=== PATIENT | female | born 1965 | race Caucasian/White ===

== ENCOUNTER → 2018-03-30 | Outpatient (CLI) | payer BC ==
--- NOTE | 2018-03-30 16:13 | CT ---
EXAMINATION TYPE: CT chest wo con DATE OF EXAM: 03/30/2018 COMPARISON: Prior chest x-ray February 11, 2018 HISTORY: Abnormal finding on lung field. CT DLP: 113 mGycm. Automated Exposure Control for Dose Reduction was Utilized. TECHNIQUE: CT scan of the thorax is performed without IV contrast. FINDINGS: LUNGS: There is mild biapical parenchymal scarring and mild bibasilar linear scarring just above the diaphragms axial image 47. The lungs otherwise are grossly clear, there is no concerning parenchymal mass or nodule identified. There is no pleural effusion or pneumothorax seen currently. The trache obronchial tree is patent. Slightly elevated left hemidiaphragm is redemonstrated. MEDIASTINUM: Lack of IV contrast is noted to limit evaluation for mediastinal and especially hilar ad enopathy. There are no definitive greater than 1 cm hilar or mediastinal lymph nodes. No cardiomega ly or pericardial effusion is seen. Coronary artery calcification is seen which is noted marker for c oronary artery disease. Ascending aorta measures up to 3.7 cm in diameter axial image 26. OTHER: There is metallic plate from prior surgery left clavicle level. Cholecystectomy clips are rede monstrated. Curvilinear calcification lateral aspect of spleen axial image 52 is presumed benign. IMPRESSION: No significant pleural effusion or pleural thickening currently. Mild parenchymal scarrin g without suspicious acute pulmonary process. Ectasia of ascending thoracic aorta up to 3.7 cm noted.
== END | disposition home or self-care (01) ==
LOC: RADCTMAIN 14:56 → MERGE 15:00
PROVIDERS: ATTEND Family Medicine
DX: J98.4 Other disorders of lung (principal); I77.810 Thoracic aortic ectasia
CPT/HCPCS: 71250

== ENCOUNTER → 2018-11-03 | Outpatient (CLI) | payer OTHER ==
--- NOTE | 2018-11-03 14:01 | XR ---
EXAMINATION TYPE: XR hand complete RT DATE OF EXAM: 11/03/2018 CLINICAL HISTORY: Injury with pain and swelling TECHNIQUE: Frontal, lateral and oblique images of the right hand are obtained. COMPARISON: None. FINDINGS: There is no acute fracture/dislocation evident in the right hand. The joint spaces in the right hand appear within normal limits. Mild soft tissue swelling centered PIP joints throughout the phalanges is noted. IMPRESSION: There is no acute fracture or dislocation in the right hand.
== END | disposition home or self-care (01) ==
LOC: RADXRMAIN 13:46
PROVIDERS: ATTEND Emergency Medicine
DX: S63.8X1A Sprain of other part of right wrist and hand, initial encounter (principal)

== ENCOUNTER → 2019-03-08 | Outpatient (CLI) | payer BC ==
--- NOTE | 2019-03-08 13:51 | MR ---
EXAMINATION TYPE: MR lumbar spine wo con DATE OF EXAM: 03/08/2019 COMPARISON: Lumbosacral spine x-rays dated 09/15/2017 HISTORY: Low Back Pain, sciatica TECHNIQUE: Multiplanar, multisequence images of the lumbar spine were acquired. FINDINGS: Lumbar spine vertebral bodies maintain normal vertebral body height and alignment. Axial im aging is slightly limited by patient motion. L1-L2: Disc desiccation without focal herniation or spinal canal stenosis. Foramina are patent. L2-L3: Broad-based disc bulge is seen with facet arthropathy resulting in very minimal bilateral neur al foraminal narrowing. Left foraminal annular tear is also seen. No spinal canal stenosis. L3-L4: Left lateral annular tear is seen with additional right foraminal annular tear. Broad-based di sc bulge and facet arthropathy results in mild bilateral neural foraminal narrowing without spinal ca nal stenosis. L4-L5: Broad-based disc bulge and facet arthropathy are seen. Left lateral annular tear is present. T here is mild bilateral neural foraminal narrowing without spinal canal stenosis or focal disc herniat ion. L5-S1: There is a central disc extrusion in a subligamentous and 7 mm caudally. There is mild spinal canal stenosis as a result of ligamentum flavum buckling, facet arthropathy and the disc herniation. IMPRESSION: 1. Central disc herniation with 7 mm caudal subligamentous disc extrusion at L5-S1 crating mild spina l canal stenosis. 2. Overall mild degenerative disc disease of the lumbar spine at the remaining lumbar levels as detai led above with multiple annular tears.
== END | disposition home or self-care (01) ==
LOC: RADMRIMAIN 11:01
PROVIDERS: ATTEND Physician Assistant Medical
DX: M51.16 Intervertebral disc disorders with radiculopathy, lumbar region (principal)
CPT/HCPCS: 72148

== ENCOUNTER 2020-03-24 11:56 | Day surgery (SDC) | payer BC ==
[2020-03-20 16:03] VITALS: BMI 19.3
[~2020-03-24 11:56] MED LIST: LACTATED RINGERS 1,000 ML IV SCH
[2020-03-24 12:14] VITALS: TEMP 97.9
[2020-03-24] MEDS ORDERED: LIDOCAINE 1% (10MG/ML) FOR IV START INTRADERMA ONE (12:29)
[2020-03-24] MEDS ORDERED: IOPAMIDOL M200 10 ML VIAL ONE (13:27)
[2020-03-24] MEDS ORDERED: fentaNYL (PF) 50 MCG/ML 2 ML AMP ONE (13:27)
[2020-03-24] MEDS ORDERED: MIDAZOLAM 2 MG/2 ML VIAL ONE (13:27)
[2020-03-24] MEDS ORDERED: methylPREDNISolone ACETATE 40 MG/ML 1 ML VIAL ONE (13:27)
--- NOTE | 2020-03-24 13:42 | P.PCN ---
Date of Procedure: 03/24/20 Procedure(s) Performed: PREOPERATIVE DIAGNOSIS: 1-Lumbar radiculopathy .2-lumbar herniated disc disease. 3-lumbar spinal stenosis. 4-lumbar spondylosis with facet arthropathy POSTOPERATIVE DIAGNOSIS: Same as preoperative diagnoses. PROCEDURE 1. Transforaminal epidural steroid injection under fluoroscopic guidance at right L5-S1 level. (Fluoroscopy images stored on file in the radiology Department ) 2. Lumbar epidurogram . ANESTHESIA: moderate sedation with intravenous Versed 1mg and fentanyle 50 micrograms. EBL: Minimal PROCEDURE INDICATION: The patient with low back pain and radiculopathy symptoms unresponsive to conservative treatment. PROCEDURE DESCRIPTION / TECHNIQUE: The patient was seen and identified in the preoperative area. Risks, benefits, complications, and alternatives were discussed with the patient. The patient ag shayy to proceed with the procedure and signed the consent. IV was started, and vital signs were stable. Patient was taken to the OR and time out was completed. The patient was placed in the prone position on procedure table and a pillow was placed under the abdomen to reduce lumbar lordosis. The lumbosacral area was prepped and draped in the usual sterile fashion. Critical pause was taken. Vital signs were closely monitored during the procedure. Conscious sedation was used during the procedure to decrease patient s anxiety. Using oblique fluoroscopy, the chin of the ``Darnell dog at right L5-S1 level was identified, and the skin and deeper tissues just below was localized with 1% lidocaine. Subsequently, a 22-gauge 3.5-inch spinal needle was advanced under a tunneled view fluoroscopic guidance just underneath the chin of the ``Darnell dog at the right L5-S1 Under lateral fluoroscopy, the needle was then advanced to the posterior border of the interforaminal space. After negative aspiration of CSF and blood and with no paresthesias, 1 mL Isovue 200 contrast dye was injected excellent epidurogram and outlining of the nerve root Subsequently, 3 mL of block solution containing 80 mg Depo-Medrol and 2 mL of 0.9% normal saline PF was injected. Needle was removed . At the end of the procedure, skin was cleansed, and bandages were applied. COMPLICATIONS:none DISPOSITION / PLANS: The patient was placed in a supine position and transferred to the recovery area in a stable condition for observation. There was no evidence of lower extremity motor or sensory deficit after the procedure. Patient was discharged from the recovery room after meeting discharge criteria. Home discharge instructions were given to the patient by the staff. The patient was reexamined prior to discharge.
[2020-03-24 13:46] VITALS: PULSE 89; RESP 17
--- NOTE | 2020-03-24 13:52 | FL ---
EXAMINATION TYPE: FL guided pain mgmt statistic DATE OF EXAM: 03/24/2020 CLINICAL HISTORY: Low back pain. TECHNIQUE: Fluoroscopy. COMPARISON: None. FINDINGS: Fluoroscopic guidance was provided during pain relief procedure performed by Dr. Jerez . A total of 5 seconds of fluoroscopic time was utilized during the procedure and 1 spot images are acquired. Single image acquired shows needle localization at right L5 level. IMPRESSION: As Above.
[2020-03-24 13:55] VITALS: BP 161/79
== END 2020-03-24 14:11 | disposition home or self-care (01) ==
LOC: ORPAIN 11:56
PROVIDERS: ATTEND Specialist
DX: M51.16 Intervertebral disc disorders with radiculopathy, lumbar region (principal); M48.061 Spinal stenosis, lumbar region without neurogenic claudication; M47.26 Other spondylosis with radiculopathy, lumbar region
CPT/HCPCS: 64483; J2250; J1030; J3010; Q9966

== ENCOUNTER 2020-04-21 06:31 | Day surgery (SDC) | payer BC ==
[2020-04-20 09:13] VITALS: BMI 18.7
[2020-04-21 06:54] VITALS: RESP 16; TEMP 97.8
[2020-04-21] MEDS ORDERED: LIDOCAINE 1% (10MG/ML) FOR IV START INTRADERMA ONE (07:02)
[2020-04-21] MEDS ORDERED: fentaNYL (PF) 50 MCG/ML 2 ML AMP ONE (07:33)
[2020-04-21] MEDS ORDERED: IOPAMIDOL M200 10 ML VIAL ONE (07:33)
[2020-04-21] MEDS ORDERED: DEXAMETHASONE SOD PHOSPHATE 10 MG/ML 1 ML VIAL ONE (07:33)
[2020-04-21] MEDS ORDERED: MIDAZOLAM 2 MG/2 ML VIAL ONE (07:33)
[2020-04-21] MEDS ORDERED: LIDOCAINE 1% INJ 10MG/ML (20 ML MDV) ONE (07:33)
--- NOTE | 2020-04-21 07:44 | P.PCN ---
Date of Procedure: 04/21/20 Surgeon: Nitesh Flanagan Pathology: none sent Condition: stable Disposition: PACU Description of Procedure: Date of the procedure: PREOPERATIVE DIAGNOSIS: Lumbar radiculopathy POSTOPERATIVE DIAGNOSIS: Lumbar radiculopathy PROCEDURE 1. Transforaminal epidural steroid injection under fluoroscopic guidance at right L5-S1 2. Lumbar epidurogram. SURGEON: Nitesh Flanagan MD [employer] PERSON: ANESTHESIA: Local with 1% lidocaine; IV sedation with Versed and fentanyl. EBL: Minimal PROCEDURE INDICATION: The patient with low back pain and radiculopathy symptoms unresponsive to conservative treatment. PROCEDURE DESCRIPTION / TECHNIQUE: The patient was seen and identified in the preoperative area. Risks, benefits, complications, and alternatives were discussed with the patient. The patient agreed to proceed with the procedure and signed the consent. IV was started, and vital signs were stable. Patient was taken to the OR and time out was completed. The patient was placed in the prone position on procedure table and a pillow was placed under the abdomen to reduce lumbar lordosis. The lumbosacral area was prepped and draped in the usual sterile fashion. Critical pause was taken. Vital signs were closely monitored during the procedure. Conscious sedation was used during the procedure to decrease patients anxiety. The vertebral body of the lumbar vertebra L5 was squared off by tilting the C-arm cephalad then the C-arm was tilted to the oblique position and the target point was at the 6 o'clock position of the pedicle of then skin and deeper tissues were localized with 1% lidocaine. Subsequently, a 22-gauge 3.5- inch spinal needle was advanced under a tunneled view fluoroscopic guidance just underneath the chin of the Darnell dog at the . Under lateral fluoroscopy, the needle was then advanced to the middle of the upper one third of the foramen between( L5 and S1). After negative aspiration of CSF and blood and with no paresthesias, 1 mL of omnipaque contrast dye was injected excellent epidurogram and outlining of the L nerve root was identified. Subsequently, 2 mL of block solution containing 10 mg of Decadron and 1 mL of Lidocaine 1% PF was injected. Needle was removed and the same . At the end of the procedure, skin was cleansed, and bandages were applied. COMPLICATIONS: None COMMENTS: DISPOSITION / PLANS: The patient was placed in a supine position and transferred to the recovery area in a stable condition for observation. There was no evidence of lower extremity motor or sensory deficit after the procedure. Patient was discharged from the recovery room after meeting discharge criteria. Home discharge instructions were given to the patient by the staff.
[2020-04-21] MEDS ORDERED: IV FLUID CONTINUATION 1,000 ML IV ONE (07:48)
[2020-04-21 08:05] VITALS: BP 166/89; PULSE 94
--- NOTE | 2020-04-21 08:11 | FL ---
Fluoroscopy History: Rt Transforaminal Inj 7sec fluoro time, 3 images scanned
== END 2020-04-21 08:19 | disposition home or self-care (01) ==
LOC: ORPAIN 06:31
PROVIDERS: ATTEND Anesthesiology
DX: M54.16 Radiculopathy, lumbar region (principal); F17.210 Nicotine dependence, cigarettes, uncomplicated
CPT/HCPCS: 64483; J2250; J1100; J2001; J3010; Q9966

== ENCOUNTER 2020-06-13 08:53 | Day surgery (SDC) | payer BC ==
[2020-06-09 11:44] VITALS: BMI 18.3
[2020-06-13 09:09] VITALS: RESP 16; TEMP 96.9
[2020-06-13] MEDS ORDERED: LACTATED RINGERS 1,000 ML IV ONE (09:15)
[2020-06-13] MEDS ORDERED: LIDOCAINE 1% (10MG/ML) FOR IV START INTRADERMA ONE (09:15)
[2020-06-13] MEDS ORDERED: DEXAMETHASONE SOD PHOSPHATE 10 MG/ML 1 ML VIAL ONE (09:20)
[2020-06-13] MEDS ORDERED: MIDAZOLAM 2 MG/2 ML VIAL ONE (09:20)
[2020-06-13] MEDS ORDERED: fentaNYL (PF) 50 MCG/ML 2 ML AMP ONE (09:20)
[2020-06-13] MEDS ORDERED: IOPAMIDOL M200 10 ML VIAL ONE (09:20)
--- NOTE | 2020-06-13 09:39 | P.PCN ---
Date of Procedure: 06/13/20 Description of Procedure: PREOPERATIVE DIAGNOSIS: Lumbar radiculopathy POSTOPERATIVE DIAGNOSIS: Lumbar radiculopathy PROCEDURE 1. Transforaminal epidural steroid injection under fluoroscopic guidance at right L5-S1 8 minutes. 2. Lumbar epidurogram. SURGEON: Jose Silva MD NEW BUSINESS CLERK: ANESTHESIA: Local with 1% lidocaine; IV sedation with Versed and fentanyl. EBL: Minimal PROCEDURE INDICATION: The patient with low back pain and radiculopathy symptoms unresponsive to conservative treatment. PROCEDURE DESCRIPTION / TECHNIQUE: The patient was seen and identified in the preoperative area. Risks, benefits, complications, and alternatives were discussed with the patient. The patient agreed to proceed with the procedure and signed the consent. IV was started, and vital signs were stable. Patient was taken to the OR and time out was completed. The patient was placed in the prone position on procedure table and a pillow was placed under the abdomen to reduce lumbar lordosis. The lumbosacral area was prepped and draped in the usual sterile fashion. Critical pause was taken. Vital signs were closely monitored during the procedure. Conscious sedation was used during the procedure to decrease patients anxiety. The vertebral body of the lumbar vertebra L5 was squared off by tilting the C-arm cephalad then the C-arm was tilted to the oblique position and the target point was at the 6 o'clock position of the pedicle of then skin and deeper tissues were localized with 1% lidocaine. Subsequently, a 22-gauge 3.5- inch spinal needle was advanced under a tunneled view fluoroscopic guidance just underneath the chin of the Darnell dog at the . Under lateral fluoroscopy, the needle was then advanced to the middle of the upper one third of the foramen between( L5 and S1). After negative aspiration of CSF and blood and with no paresthesias, 1 mL of omnipaque contrast dye was injected excellent epidurogram and outlining of the L nerve root was identified. Subsequently, 2 mL of block solution containing 10 mg of Decadron and 1 mL of Lidocaine 1% PF was injected. Needle was removed and the same . At the end of the procedure, skin was cleansed, and bandages were applied. COMPLICATIONS: None COMMENTS: DISPOSITION / PLANS: The patient was placed in a supine position and transferred to the recovery area in a stable condition for observation. There was no evidence of lower extremity motor or sensory deficit after the procedure. Patient was discharged from the recovery room after meeting discharge criteria. Home discharge instructions were given to the patient by the staff. Patient will follow up in clinic in 2-4 weeks.
[2020-06-13] MEDS ORDERED: IV FLUID CONTINUATION 1,000 ML IV ONE (09:44)
[2020-06-13 10:05] VITALS: BP 159/83; PULSE 97
--- NOTE | 2020-06-13 12:28 | FL ---
Fluoroscopy INDICATION: Pain FINDINGS: Fluoroscopy time: 4 seconds. Images obtained: 1. IMPRESSIONS: 1. Documentation of fluoroscopy.
== END 2020-06-13 10:11 | disposition home or self-care (01) ==
LOC: ORPAIN 08:53
PROVIDERS: ATTEND Anesthesiology
DX: M54.16 Radiculopathy, lumbar region (principal); Z79.899 Other long term (current) drug therapy
CPT/HCPCS: 64483; J2250; J1100; J3010; Q9966

== ENCOUNTER → 2020-07-10 | Outpatient (CLI) | payer BC ==
[2020-07-10 11:59] VITALS: BP 145/88; PULSE 89; RESP 16; TEMP 97.6
--- NOTE | 2020-07-10 12:12 | P.PN ---
Subjective Progress Note Date: 07/10/20 This is a follow-up visit for this 54 years old female with a chronic history of severe low back pain with radiation to the right lower extremity, the statements with lumbar radiculopathy and lumbar herniated disease at L5-S1, and lumbar spondylosis with lumbar facet arthropathy, status post right-sided tr ansforaminal epidural steroid injection at L5-S1 3, she got short-term benefit after the injections, and she is complaining of severe low back pain with radiation to the right lower extremity associated with numbness and tingling sensation, she feels some weakness in her right lower extremity, intensity of the pain increases with any activity Objective - Vital Signs Vital signs: Vital Signs Temp 97.6 F 07/10/20 11:53 Pulse 89 07/10/20 11:53 Resp 16 07/10/20 11:53 BP 145/88 07/10/20 11:53 Pulse Ox 98 07/10/20 11:53 - Exam Physical Examinations : -Constitutiona : Cooperative , not in acute distress . -HEENT : nech : supple , no Lymphadenopathy , normal thyroid size . : eyes : no ptosis , no icterus, no photophobia . - neurologic : Cranial nerve II to XII intact , no focal neurological deffecit . -psychatric : alert , oriented X 3 , appropriate affect , intact judgment and insight . -Lymphatic : no Lymphadenopathy . - musculoskeltal : Lumber spine moter stegnth lower extremities ,thigh and legs 3-4/5 Right side , 5/5 Left side deep tendon reflexes : normal Knee Jerk , normal ankle Jerk lumber facet Loading Test =positive Right , positive Left Range of motion of the lumbar spine Flexion 30 degrees, extension 10 degrees strait leg raising test = positive at 30 degree right side Fabere test= positive Right , and positive LT . tenderness over the Sacroiliac joint on the Right , and Left sides MRI of the lumbar spine = lumbar herniated disc disease at L5-S1 and lumbar degenerative disc disease and lumbar facet arthropathy Assessment and Plan Plan: Assessment and plan=1-lumbar radiculopathy. 2-lumbar herniated disc disease. 3-lumbar spondylosis with lumbar facet arthropathy. she continue to have severe low back pain with radiation to the right lower extremity after transforaminal epidural steroid injections 3 , patient will follow up with for evaluation of possible surgical interventions. - PQRS measures = - Patient's medications are documented in the chart. -Tobacco use is positive, and counseling.Given. -Patient's has not received pneumococcal vaccine. -Advanced care planning discussed, patient not eligible. -Opiate contract not signed. -Pain positive and follow-up visit/procedure is scheduled. -Patient's blood pressure measured [145/88 ] , and documented in the record ,and patient will follow up with the primary care. -Patient's weight was measured and body mass index [ 18.7 ] below the normal limits and counseling was done. and patient instructed to follow-up with the primary care physician. -Patient was not identified as an unhealthy alcohol user Time with Patient: Less than 30
== END ==
LOC: PNWHC3 10:48
PROVIDERS: ATTEND Specialist
DX: M47.26 Other spondylosis with radiculopathy, lumbar region (principal); M51.26 Other intervertebral disc displacement, lumbar region
CPT/HCPCS: 99211

== ENCOUNTER → 2020-07-17 | Outpatient (CLI) | payer BC ==
--- NOTE | 2020-07-18 07:56 | MR ---
EXAMINATION TYPE: MR lumbar spine wo con DATE OF EXAM: 07/17/2020 COMPARISON: 03/08/2019 HISTORY: Low back pain into rt lower extremity TECHNIQUE: T1 and T2 axial and sagittal images of the lumbar spine are submitted. FINDINGS: There is no abnormal signal seen within the visualized spinal cord or paraspinal soft tissu es. At L1-2 there is no disc herniation or canal stenosis. No foraminal encroachment. At L2-3 there is mild broad-based disc bulging but no canal stenosis or focal herniation. Hypertrophy of the facets. Mild degenerative disc disease. Neural foramina patent At L3-4 there is degenerative disc disease with anterior hypertrophic spurring. Mild circumferential disc bulging with mild effacement of thecal sac. There is facet arthropathy and ligamentum flavum hyp ertrophy with borderline to mild central stenosis and mild bilateral foraminal encroachment At L4-5 there is degenerative disc disease with broad-based disc bulging with a greater right paracen tral and lateral disc broad-based herniation. Advanced facet arthropathy and ligamentum flavum hypert rophy contribute to severe right and moderate left foraminal encroachment and severe canal stenosis. At L5-S1 there is degenerative disc disease with broad-based central disc small herniation there is m ild effacement of thecal sac. Disc material appears to extrude portions of signal seen posterior to t he upper margin of S1 segment. Facet arthropathy noted. Neural foramina demonstrate no significant na rrowing. IMPRESSION: 1. Broad-based disc herniation greater paracentrally to the right L4-L5. Advanced facet arthropathy a nd ligamentum flavum hypertrophy contribute to significant bilateral foraminal encroachment and sever e canal stenosis. On axial image 9 portions of the disc herniation extends laterally into the right n eural foramina. Suspected nerve root impingement. 2. A broad-based central disc herniation L5-S1 with mild effacement of thecal sac. Similar in appeara nce to the prior exam. 3. Multilevel degenerative disc disease as discussed above.
== END | disposition home or self-care (01) ==
LOC: RADMRIMAIN 11:37
PROVIDERS: ATTEND Physician Assistant Medical
DX: M48.061 Spinal stenosis, lumbar region without neurogenic claudication (principal); M51.26 Other intervertebral disc displacement, lumbar region
CPT/HCPCS: 72148

== ENCOUNTER → 2020-07-31 | Outpatient (CLI) | payer BC ==
--- NOTE | 2020-07-31 11:37 | XR ---
EXAMINATION TYPE: XR chest 2V DATE OF EXAM: 07/31/2020 COMPARISON: 02/11/2018 HISTORY: Preoperative, smoker TECHNIQUE: Frontal and lateral views of the chest are obtained. FINDINGS: Heart size is within normal limits. Atherosclerotic aortic knob. No focal consolidation, p neumothorax or pleural effusion. There is hyperaeration of the lungs with increased retrosternal airs pace suggestive of COPD. There is a plate and screw fixation device at the left clavicle. IMPRESSION: 1. No acute pulmonary disease. 2. COPD.
== END | disposition home or self-care (01) ==
LOC: RADXRYALE 10:42
PROVIDERS: ATTEND Physician Assistant Medical
DX: Z01.818 Encounter for other preprocedural examination (principal); J44.9 Chronic obstructive pulmonary disease, unspecified; F17.200 Nicotine dependence, unspecified, uncomplicated
CPT/HCPCS: 71046

== ENCOUNTER → 2020-07-31 | Outpatient (CLI) | payer BC | END | disposition home or self-care (01) | LOC: LABPAT 13:42 | PROVIDERS: ATTEND Orthopaedic Surgery | DX: Z01.812 Encounter for preprocedural laboratory examination (principal) | CPT/HCPCS: 36415; 86850; 86900; 86901; 87070 ==

== ENCOUNTER 2020-08-08 06:09 | Day surgery (SDC) | payer BC ==
[2020-08-02 13:58] VITALS: BMI 17.7
[~2020-08-08 06:09] MED LIST changes: +ACETAMINOPHEN TAB 500 MG TAB PO PRN; +DEXAMETHASONE SOD PHOSPHATE 4 MG/ML 1 ML VIAL IV ONE; +GABAPENTIN 300 MG CAP PO PRN; -LACTATED RINGERS 1,000 ML IV SCH; +LIDOCAINE 1% (10MG/ML) FOR IV START INTRADERMA PRN; +MIDAZOLAM 2 MG/2 ML VIAL IV PRN; +ONDANSETRON 4 MG/2 ML VIAL IVP ONE; +ONDANSETRON 4 MG/2 ML VIAL IVP PRN; +TRANEXAMIC ACID 1,000 MG in SODIUM CHLORIDE 0.9% 100 ML IVPB PRN
--- NOTE | 2020-08-08 06:35 | P.HPOR ---
History of Present Illness H&P Date: 07/26/20 Chief Complaint: LE weakness, Radiculopathy, neurogenic claudication Physical Therapy: Yes How many sessions? 16 Did it help? No Injections: No Activity Modifications: No Brace: No CC: I have low back pain and leg pain Subjective: This 54 year old female presents with low back pain. Patient denies any specific injury. She states that she has had low back pain for 2 years. She had previous physical therapy with no relief. She reports low back pain that radiates down her right leg to her foot. She notes pain with bending and with prolonged walking. She denies any bowel or bladder problems. Patient was seen by her primary care physician and then referred to our office for an evaluation. Patient is taking Tylenol or Aleve as needed for pain. Review of Systems 14 points review of systems completed and as stated in HPI, all other systems reviewed are negative. Past Medical History Past Medical History: Hyperlipidemia, Hypertension, Osteoarthritis (OA) Additional Past Medical History / Comment(s): Hx fx Lt Clavicle. Lower back pain- radiates into Rt leg, numbness/tingling rt leg, herniated disk, History of Any Multi-Drug Resistant Organisms: None Reported Past Surgical History: Cholecystectomy, Orthopedic Surgery Additional Past Surgical History / Comment(s): ORIF left clavicle-has plate/screws. pain clinic procedures Past Anesthesia/Blood Transfusion Reactions: No Reported Reaction Smoking Status: Current every day smoker - Past Family History Mother Family Medical History: Cancer Additional Family Medical History / Comment(s): BREAST Father Family Medical History: Cancer Additional Family Medical History / Comment(s): skin cancer Medications and Allergies Home Medications Medication Instructions Recorded Confirmed Type Multivitamins, Thera [Multivitamin 1 tab PO DAILY 03/20/20 08/02/20 History (formulary)] Cyclobenzaprine [Flexeril] 5 mg PO TID 06/09/20 08/08/20 History Ibuprofen 800 mg PO TID 07/06/20 08/02/20 History atenoloL [Atenolol] 25 mg PO QAM 07/06/20 08/02/20 History Celecoxib [CeleBREX] 200 mg PO QAM 07/10/20 08/02/20 History Acetaminophen [Tylenol Extra 1,000 mg PO DIRECTED PRN 08/02/20 08/02/20 History Strength] Atorvastatin [Lipitor] 40 mg PO HS 08/02/20 08/08/20 History Allergies Allergy/AdvReac Type Severity Reaction Status Date / Time No Known Allergies Allergy Verified 08/08/20 06:25 Physical Examination Osteopathic Statement: *. No significant issues noted on an osteopathic structural exam other than those noted in the History and Physical/Consult. General: Awake, alert, appropriate for age, in no acute distress. HEENT: No unusual neck masses around region of lateral neck triangle, thyroid, supraclavicular groove Heart: Regular rate and rhythm, normal S1, S2 and no murmur/gallop. Lungs: Clear to auscultation bilaterally with no use of accessory muscles. Extremities: Skin warm and dry without acute lesions, coloration, temperature, skin intact, no tenderness or erythema Integument: Hairy patches: Absent Dorsal skin dimples: Absent Cafe au lait spots: Absent Surgical incisions: None Palpation: Please see Pain drawing on Intake sheet for further detail. Midline spinal tenderness: yes lumbar E6 Paralumbar tenderness: No E6 Parathoracic tenderness: No E6 Buttocks tenderness: No E6 Special findings: none POSTURAL and MUSCULO-SKELETAL EVALUATION: Coronal Balance: Neutral Recumbent testing: Patient is able to lay flat on back Sagittal Balance: Neutral Shoulder Profile: level Pelvic Girdle: level Neck ROM: Unrestricted Lumbar ROM: Unrestricted Shoulder ROM: Symmetric in abduction, ER/IR Hip ROM: Symmetric in abduction, adduction, ER/IR Knee ROM: Symmetric and intact in Flexion / extension Hands: Normal Feet: Normal VASCULAR STATUS : LEFT RIGHT Wrist Pulses intact intact Pedal Pulses (Dors. pedis & post.tibialis) intact intact Color normal normal Edema Absent Absent NEUROLOGIC EXAMINATION: Mental Status: Awake and alert, fully oriented, with normal attention, concentration and memory, and fluent, appropriate speech. Cranial Nerves: I: Olfactory not tested. II: Visual acuity normal, no visual field deficit noted with confrontation. III,IV: Normal pupillary reflexes & intact extraocular movements without nystagmus. V,: Intact symmetrical facial sensation. VII: Intact symmetrical facial motor movement VIII: Hearing intact. IX,X: Intact gag, swallow, & normal voice. XI: Sternocleidomastoid, trapezius function intact. XII: Tongue midline with normal movements. L'hermitte's Sign: Negative / absent Spurling'Sign: Absent bilaterally. Cubital percussion test: Absent bilaterally. Joe-Tinel sign - Carpal region: Absent bilaterally. Straight Leg Raising: Absent bilaterally. Crossed straight leg raise: negative O8 MOTOR EXAM (0-5/5, N/T) STRENGTH RIGHT LEFT Shoulder Abd (not part of the AMBER score) 5 5 Elbow Flexors 5 5 Elbow Extensor 5 5 Wrist Dorsiflexors 5 5 Finger Abductor 5 5 Media Relations Coordinator 5 5 Hip Flexor (Not part of AMBER Motor score) 5 5 Knee Flexor 5 5 Knee Extensor 5 5 Ankle dorsiflexor 5 5 Ankle plantarflexion 4 5 Extensor hallucis 5 5 REFLEXES(0-4/2, NT) RIGHT LEFT Upper Extremities 2 2 Lower Extremities 2 2 Pathological Reflexes RI GHT LEFT Patino's Absent Absent Clonus Absent Absent Neg babinski b/l Muscle appearance: Normal Rectal Tone: Not tested Sensory system (0-4, N/T) Test type RU ELVER RL LL Joint-Position 2 2 2 2 Vibration 2 2 2 2 Pain & LT sense 2 2 2 2 Dermatomal Deficit: none none none none Gait and Functional Evaluation: Ambulatory aids: Independent Romberg's test: Intact bilaterally Toe heel walk / heel-toe walk intact while maintaining satisfactory balance? yes Squatting/straightening w/o assistance to a min of 60 degree knee flexion? yes Single leg stance: intact Trendelenburg sign negative bilaterally Hand and finger dexterity intact bilaterally? No Disdiadochokinesis examination negative bilaterally? No Results LUMBAR SPINE X-RAYS 02/14/2020: ap LATERAL FLEXION EXTENSION FILMS OF THE LUMBAR SPINE ARE OBTAINED AND REVIEWED IN THE OFFICE TODAY WELL ap PELVIS. tHIS DEMONSTRATES AN OVERALL WELL-MAINTAINED ALIGNMENT IN THE SAGITTAL WELL CORONAL PLANE. tHE SPINE REMAINED STABLE THROUGH FLEXION-EXTENSION THERE ARE NO FRACTURES DISLOCATIONS OR LESIONS NOTED. tHERE IS MILD FACET ARTHROSIS AT l5-s1 WITH MILD SPONDYLOSIS AT l5-s1. MRI of the lumbar spine from 07/17/2020 reveal: Severe stenosis L4-5 due to facet hypertrophy and ligamentum hypertrophy. Large far lateral disc herniation L4-5 on the R. No fracture or dislocation. No lesions noted. Overall alignment appears within reasonable limits. Assessment and Plan Assessment: 1. L4-L5 disc herniation with severe stenosis 2. RLE weakness with radiculopathy Plan: In our visit today Ms. Smith and I have had a chance to go over my understanding of the patient's current condition, the natural course history without intervention and various interventional options. Questions were invited and answered, and the patient wishes to proceed as outlined above. She has failed all conservative therapies including shots, OTC medications, PT and physician directd home exercises. She is having progressive weakness and pain in her RLE secondary to this issue. We discussed surgery at length vs continued conservative measures but if she does not have this taken care of she runs the risk of continued or worsening weakenss. She understands and wants surgery at this time. Surgical Procedure Risk Review Toshia Smith is a 54 year old female presenting for evaluation of sudden onset of RLE weakness, pain and low back pain. It was my pleasure to have seen and examined Ms. Smith. In our visit today we have had a chance to go over subjective complaints, physical examination findings and treatments, including the natural course history without intervention and various interventional options. The imaging demonstrates L4-5 severe stenosis and far lateral HNP . On physical exam, Ms. Smith demonstrates weakness in her RLE, severe pain, tensioning signs, radiculopathy and inability to perform ADLs as well as work secondary to this issue . I explained to the patient that as her condition progresses it could cause progressive weakness, continued pain and debility . At this time, based on the patients imaging and physical exam, I recommend surgery in the form or a: L4-5 laminectomy, discectomy and Coflex placement . I discussed the risk and benefits of this procedure at length with Ms. Smith. The patient agreed to consider pursuing the procedure mentioned above. Plan: 1. L4-5 bilateral laminectomy, microdiscectomy and coflex placement 2. Follow up with PCP for surgical clearance 3. Review of surgical risks and benefits as well as an educational packet on the proposed surgical procedure. Risks: All surgical procedures come with inherent risks, including those related to positioning, anesthesia, intraoperative findings, and postoperative complications. It is important to understand that surgery does not come with any guarantee of a successful outcome as complications and adverse events are always possible. The patient was given a handout in office today discussing the surgical procedure and risks associated with the intervention, both of which were discussed with the patient. These risks include but are not limited to the following: ? Experiencing same, different or even worse symptoms in back, neck, arms, or legs compared to before surgery. ? Requiring further surgery or other forms of treatment presently or at some time in the future at same or other levels of the intended spine surgery. ? On an extreme but fortunately relatively rare basis severe complication such as blindness, stroke, heart attack, temporary and/or permanent nerve injury, paralysis, coma, or may occur, sometimes without known explanation. ? Surgical complications may include but are not limited to risk of infection, fluid accumulation in the surgical dissection site, including a seroma or hematoma, that requires additional surgery, wound drainage, bleeding, new numbness or weakness, vision changes/loss, spinal fluid leakage, non-healing and/or infected incision, headaches, difficulty or inability to swallow, hoarseness, hemopneumothorax, pneumothorax, impotence, retrograde ejaculation, vaginal dryness; injury to nerves, spinal cord, blood vessels, lymphatics or other vital organs (i.e., bowel injury, injury to the great vessels); heterotopic bone formation; complications related to the hardware such as screws, rods, cages including misplaced hardware, device failure, instrumentation at the wrong spine level, hardware fracture/breakage, or hardware loosening; vertebral failure of the spinal column above or below the newly placed hardware; retained surgical instrumentations or devices and the need for further surgery. ? Medical risks of the planned spine surgery include but are not limited to generalized Infections to the whole body or local areas outside of the surgical site (sepsis), heart attack, bleeding, anaphylaxis, meningitis, seizure, epilepsy, hearing loss, burn corbin, laceration of the head or other areas of the body, bruising, hypersensitivity of the skin, bladder over distension; allergic reaction; shoulder injury related to positioning; fat, blood and air clots to other areas of the body like heart, lungs, brain; failure of internal organs such as lungs, kidneys, liver and excessive bleeding. If blood transfusions are necessary, note that transfusions may cause intolerance reactions such as anaphylaxis or other complex reactions. Despite best efforts, the results of spine surgery might not heal in terms of bone, soft tissues such as skin, fascia, ligaments, and joints. Additionally, in order to achieve best possible results, spine surgery may be carried out beyond the initially planned levels and involve decompression, fusion including insertion of hardware at levels other than the original intended area of surgical interest change some portions of the procedure in order to ensure the best possible outcomes. With spine surgery and spinal fusion, there are different off label uses of instrumentation (devices, implants and hardware) as well as biological substances (bone morphogenic proteins, demineralized bone matrix) as well as using extra bone from allograft sources (i.e. cadaver bone) or autograft (iliac crest bone, ribs, or the spine itself). The patient has been given information about these practices and their inherent risks and benefits. Wendie Rowland Physician Assistants are medically trained surgical providers who function in the outpatient, inpatient, and operating room setting under the direct supervision of the attending surgeon.They assist in the operating room with direct supervision of the attending surgeons. The patient has had a chance to review all the listed information, has been given print outs detailing this information, and has had all his/her questions answered to their satisfaction. It was my pleasure to have seen and examined Ms. Smith. In our visit today we have had a chance to go over my understanding of our patient's current condition, the natural course history without intervention and various interventional options. Questions were invited and answered, and the patient wishes to proceed as outlined above. I have seen and examined the patient for 25 minutes and we have spent more than 50% of the time in repeat and detailed counseling about the patient's condition, its natural course history with out and as much as can be predicted with surgery and re-review of various surgical treatment options. In conclusion,Ms. Smith and her spouse/partner requested we proceed with the above suggested surgery and are willing to accept risks and limitations of the suggested surgery as nature of the disease process and our best attempts at treatment for the condition. Thank you again for allowing us to be part of your patient's care. Please don't hesitate to contact me if you have any further questions. Signed and authenticated by: Jairo Coyne [facility] [address] [address] This message is confidential, intended only for the named recipient(s) and may contain information that is privileged or exempt from disclosure under applicable law. If you are not the intended recipient(s), you are notified that the dissemination, distribution or copying of this information is strictly prohibited. If you received this message in error, please notify the sender then delete this message.
[2020-08-08] MEDS ORDERED: ONDANSETRON 4 MG/2 ML VIAL IVP ONE (06:48)
[2020-08-08] MEDS ORDERED: LACTATED RINGERS 1,000 ML IV ONE (06:48)
[2020-08-08] MEDS: LACTATED RINGERS 1,000 ML IV SCH ×2 (06:48→07:31)
[2020-08-08] MEDS ORDERED: DEXAMETHASONE SOD PHOSPHATE 4 MG/ML 1 ML VIAL IVP ONE (06:49)
[2020-08-08] MEDS ORDERED: ACETAMINOPHEN TAB 500 MG TAB PO ONE (06:49)
[2020-08-08] MEDS ORDERED: GABAPENTIN 300 MG CAP PO ONE (06:49)
[2020-08-08] MEDS ORDERED: MIDAZOLAM 2 MG/2 ML VIAL IVP ONE ×2 (06:50→06:58)
[2020-08-08] MEDS ORDERED: HYDROmorphone 0.5 MG/0.5 ML SYRINGE IVP PRN (07:00)
[2020-08-08] MEDS ORDERED: ROCURONIUM 10 MG/ML (5 ML VIAL) IV ONE (07:30)
[2020-08-08] MEDS ORDERED: SODIUM CHLORIDE 0.9% 100 ML BAG ONE (07:30)
[2020-08-08] MEDS ORDERED: PHENYLEPHRINE-0.9% NACL SYG 1,000 MCG/10 ML SYRINGE ONE (07:30)
[2020-08-08] MEDS ORDERED: PROPOFOL 10 MG/ML 20 ML VIAL IV ONE (07:30)
[2020-08-08] MEDS ORDERED: NEOSTIGMINE 1 MG/ML 10 ML VIAL ONE (07:30)
[2020-08-08] MEDS ORDERED: KETOROLAC 15 MG/ML 1 ML VIAL ONE (07:30)
[2020-08-08] MEDS ORDERED: TRANEXAMIC ACID 1,000 MG/10 ML VIAL ONE (07:30)
[2020-08-08] MEDS ORDERED: LIDOCAINE 1% INJ 10MG/ML (20 ML MDV) ONE (07:30)
[2020-08-08] MEDS ORDERED: fentaNYL (PF) 50 MCG/ML 2 ML AMP ONE (07:30)
[2020-08-08] MEDS ORDERED: GLYCOPYRROLATE 0.2 MG/ML 2 ML VIAL ONE (07:30)
[2020-08-08] MEDS ORDERED: SUCCINYLCHOLINE CHLORIDE 100 MG/5 ML SYR IV ONE (07:30)
[2020-08-08] MEDS ORDERED: HYDROmorphone (PF) 1 MG/ML ONE (07:30)
[2020-08-08] MEDS ORDERED: TRIAMCINOLONE ACETONIDE 40 MG/ML 1 ML VIAL INTRAARTIC STA (08:09)
[2020-08-08] MEDS ORDERED: KETOROLAC 15 MG/ML 1 ML VIAL IVP ONE (08:15)
[2020-08-08] MEDS ORDERED: BUPIVACAINE (PF) 0.25% 30 ML VIAL SQ ONE ×2 (08:48)
[2020-08-08] MEDS ORDERED: GELATIN SPONGE,ABSORB (LARGE) 1 EACH SPONGE MISCELLANE ONE (08:49)
[2020-08-08] MEDS ORDERED: THROMBIN (BOVINE) 5,000 UNIT VIAL TOPICAL ONE (08:50)
[2020-08-08] MEDS ORDERED: TRIAMCINOLONE ACETONIDE 40 MG/ML 1 ML VIAL INTRADERMA ONE (09:32)
--- NOTE | 2020-08-08 10:09 | FL ---
Fluoroscopy and limited lumbar spine HISTORY: Pain 15 seconds fluoroscopy time supplied to the referring clinician. 7 intraoperative C-arm images docum ent the procedure. See dictated report from orthopedic surgery.
[2020-08-08 10:29] VITALS: TEMP 96.9
[2020-08-08 10:30] VITALS: RESP 16
[2020-08-08] MEDS ORDERED: HYDROcodone/APAP 5-325MG 1 EACH TAB ONE (12:09)
--- NOTE | 2020-08-08 12:10 | P.OP ---
Date of Procedure: 08/08/20 Preoperative Diagnosis: 1. L4-5 stenosis 2. L4-5 R lateral disc herniation 3. RLE radiculopathy 4. RLE weakness Postoperative Diagnosis: Same Procedure(s) Performed: 1. L4-5 bilateral decompressive laminectomy, medial facetectomy and foraminotomy 2. L4-5 microdiscectomy 3. L4-5 coflex (interspinous) placement 4. Use of interaoperative microscope Implants: 10 mm Coflex device Anesthesia: GETA Surgeon: Jairo Rubin Economic Specialist #1: Demetrio Florentino (Was present for the entire case and necessary due to complexity of the case) Estimated Blood Loss (ml): 50 IV fluids (ml): 1,200 Urine output (ml): 0 Pathology: none sent Condition: stable Disposition: PACU Indications for Procedure: 54-year-old female who has presented several times playing low back pain as well as right lower extremity radiculopathy and no weakness. Patient was seen several times in the office she attempted multiple different conservative measures at modalities including physical therapy injections over the counter medications and prescription medications which none of help her symptoms. She then became more symptomatic with increasing pain in her right leg and weakness her primary care then ordered an MRI which showed severe stenosis at L4 5 with ligamental hypertrophy as well as facet hypertrophy and a far lateral disc herniation on the right-hand side. It also showed mild bulging at L5-S1 however with no central or foraminal stenosis. We discussed in office the different treatment measures including operative and nonoperative treatment she elected for operative treatment and she continues to have pain despite injections and other conservative measures. She was seen preoperatively L preoperative protocols following discuss again risks and benefits of the procedure including risk of bleeding infection damage structures risk of reoperation risk of anesthesia including doses willing assume these risks versus surgery. These are outlined in the risk review. Operative Findings: Severe stenosis L4 5 with large far lateral disc herniation Description of Procedure: The patient was seen and examined in the preoperative area. All preoperative protocols were followed. Informed consent was obtained risks and benefits of the procedure were discussed at length. Risks including bleeding infection damage to the surrounding tissue and risk of reoperation were discussed with the patient. Risk of anesthesia up to and including was a discussed with the patient. These are outlined in the risk review. They were willing to accept these risks and all of the risks of surgery. The patient was given a weight- based dose of antibiotics in the form of 2 g Ancef IVPB. The patient was seen and evaluated by the anesthesia team who deemed them fit for surgery. The site was marked, the patient was willing to proceed with the procedure. The patient was transferred to the operative suite by the Department of anesthesia. They were then drifted off to sleep by the department anesthesia GETA. The patient tolerated this well. . Once confirmation of lines and ventilation the patient was transferred to a prone Joaquim Zeyad table very carefully. All bony prominences including wrists, elbows, axilla, chest, hips, and thighs, and feet were padded very well. Special attention was paid to the genitalia and these were padded accordingly. SCDs were placed on bilateral lower extremities and were connected. Arms were well padded and placed [on arm boards up and out in the 90/90 position]. Once in position, again we confirmed good ventilation capabilities and that lines were running appropriately. The patient's lumbar spine was then exposed. 1010s were placed outlining the incision site. Standard alcohol was used to clean the incision site and allowed to dry. C-arm was used to biomark the patient and confirm level for incision which was marked with a skin marker. Operative briefing was performed with all teams and everyone in agreement to proceed. The patient was then prepped and draped in a normal sterile fashion. Timeout was then performed and all parties were in agreement with the procedure to be performed. Corset Marcaine was then infiltrated into the surgical field. Skin knife was then used to make a midline skin incision. Flex cautery dissection was taken down to the fascia which was then identified and split midline over the spinous processes. Subperiosteal dissection was then taken down over the L4-L5 region taking care to preserve the L4 5 joint capsule. Once the area was exposed P enfield 4 was placed at the pars and articularis of L4 and lateral x-ray confirmed the L3-L4 disc space. The microscope was then brought in and we Then proceed with bilateral laminotomy medial facetectomy and foraminotomy which was completed with a high-speed bur inverted U cuts were made in the L4 lamina and medial facetectomy performed in J cuts were then made in the superior trigger process of L5 and the top of L5 lamina to complete the laminotomies bilaterally. Then performed and performed foraminotomies bilaterally using a 3 Kerrison and confirming good decompression with a Neri probe then proceeded with a right- sided L4-L5 microdiscectomy to remove the posterior lateral disc herniation/far lateral disc herniation annulotomy was made with a 15 blade after careful retraction of the dural sac and protection with a nerve root retractor micropituitary was inserted and a large disc fragment was removed a down-biting curet was then used to reach laterally and push any further disc material anterior us was then removed with a pituitary. The wound was then copiously irrigated with normal sterile saline and meticulous hemostasis performed with electrocautery bipolar as well as FloSeal. We then removed the interspinous ligament using electrocautery and rongeur this taken down to the ligamentum flavum which had been removed previously. We then sized under lateral fluoroscopy a 10 mm Coflex implant this was then implanted with careful taps from a mallet after having been sized this is done under lateral fluoroscopy. Prior to this we had marked the dura with a Neri probe to know the depth to place the Coflex device to uncinate was in place we confirmed that it was within 2 mm of the dura stable and good position we then crimped the fins into place taking care to not break the spinous processes we then tested this with a Clayton and was in good position and not moving. The wound was then copiously irrigated with 3 L normal sterile saline was placed surgery Surgicel Surgicel foam and powder within the wound which was exposed inspected there is no bleeding no dural leaks noted. The retractors were removed and we proceeded with closure the fascia was closed in a watertight fashion first with #1 Vicryl followed by a running locking PDS suture the subcu was closed with 2-0 Vicryl and the subcuticular region closed with a 40 strata fix Monocryl the wound was then cleaned and dressed sterilely with Dermabond perneio tape. This was allowed to dry completely and then dressed with telfa 4x4 and tegaderms. The patient was transferred back to her hospital bed atraumatically. Patient was then awakened and extubated by the department of anesthesia having tolerated the procedure very well with no complications. She was transferred to the postoperative care unit in stable condition.
[2020-08-08] MEDS ORDERED: HYDROcodone/APAP 5-325MG 1 EACH TAB PO ONE (12:14)
[2020-08-08 12:40] VITALS: BP 120/76; PULSE 81
== END 2020-08-08 12:49 | disposition home or self-care (01) ==
LOC: OR 06:09
PROVIDERS: ATTEND Orthopaedic Surgery
DX: M48.061 Spinal stenosis, lumbar region without neurogenic claudication (principal); M51.16 Intervertebral disc disorders with radiculopathy, lumbar region; I10 Essential (primary) hypertension; F10.10 Alcohol abuse, uncomplicated; F17.210 Nicotine dependence, cigarettes, uncomplicated; Z20.822 Contact with and (suspected) exposure to COVID-19; Z79.899 Other long term (current) drug therapy; Z98.890 Other specified postprocedural states
CPT/HCPCS: 87635; 72020; 63047; C1713; C1762; J2250; J1100; J3301; J2710; J0690; J2405; J2001; J3010; J1170 ×2; J1885; J2370; J0330; J2704; 36415; 86850; 86900; 86901

== ENCOUNTER 2021-06-29 21:33 | Emergency (ER) | payer BC, OTHER ==
[2021-06-29 21:37] VITALS: RESP 18
[2021-06-29] MEDS ORDERED: BUPIVACAINE (PF) 0.5% 30 ML VIAL SQ STA (21:55)
[2021-06-29] MEDS ORDERED: HYDROcodone/APAP 5-325MG 1 EACH TAB PO STA (21:55)
--- NOTE | 2021-06-29 21:58 | ED ---
Upper Extremity HPI - General Chief Complaint: Extremity Injury, Upper Stated Complaint: RT wrist injury Time Seen by Provider: 06/29/21 21:53 Source: patient, RN notes reviewed Limitations: no limitations - History of Present Illness Initial Comments: This is a pleasant, [id number] 55-year-old female who tripped and fell falling on outstretched right hand. Patient complaining of pain to the right wrist. Injury occurred just prior to arrival. No distal paresthesias. No distal proximal injuries. Pain is sharp, exacerbated by palpation, movement. Somewhat alleviated by rest. No break in skin integrity. No headache, no fever or chills, no changes in vision or hearing, no sore throat or difficulty with speech, no neck pain, no chest pain or shortness of breath, no abdominal pain, no nausea or vomiting, no changes in urination or bowel movements, no numbness or tingling, no skin rashes or lesions. MD Complaint: Injury to:: right, wrist - Related Data Home Medications Medication Instructions Recorded Confirmed Multivitamins, Thera [Multivitamin 1 tab PO DAILY 03/20/20 08/02/20 (formulary)] Cyclobenzaprine [Flexeril] 5 mg PO TID 06/09/20 08/08/20 Ibuprofen 800 mg PO TID 07/06/20 08/02/20 atenoloL 25 mg PO QAM 07/06/20 08/02/20 Celecoxib [CeleBREX] 200 mg PO QAM 07/10/20 08/02/20 Acetaminophen [Tylenol Extra 1,000 mg PO DIRECTED PRN 08/02/20 08/02/20 Strength] Atorvastatin [Lipitor] 40 mg PO HS 08/02/20 08/08/20 Previous Rx's Medication Instructions Recorded Cyclobenzaprine [Flexeril] 10 mg PO HS #20 tab 08/08/20 Gabapentin 300 mg PO TID #42 cap 08/08/20 HYDROcodone/APAP 5-325MG [Pioneer 1 tab PO Q6HR PRN #36 tab 08/08/20 5-325] Sennosides/Docusate Sodium [Senna 1 each PO BID #30 tablet 08/08/20 Plus 8.6-50 mg Tablet] cefaDROXiL [Duricef] 1 gm PO DAILY #5 tablet 08/08/20 HYDROcodone/APAP 5-325MG [Pioneer 1 tab PO Q6HR PRN 3 Days #12 tab 06/29/21 5-325] Allergies Allergy/AdvReac Type Severity Reaction Status Date / Time No Known Allergies Allergy Verified 06/29/21 21:37 Review of Systems ROS Statement: Those systems with pertinent positive or pertinent negative responses have been documented in the HPI. ROS Other: All systems not noted in ROS Statement are negative. Past Medical History Past Medical History: Hypertension, Musculoskeletal Disorder Additional Past Medical History / Comment(s): Hx fx Lt Clavicle. Poss seizure 12 years ago, ? episode x1. Lower back pain, radiates into Rt leg, NT in leg. History of Any Multi-Drug Resistant Organisms: None Reported Past Surgical History: Cholecystectomy, Orthopedic Surgery Additional Past Surgical History / Comment(s): ORIF left clavicle, has plate/screws. pain clinic procedures Past Anesthesia/Blood Transfusion Reactions: No Reported Reaction Past Psychological History: No Psychological Hx Reported Smoking Status: Current every day smoker Past Alcohol Use History: Occasional Past Drug Use History: None Reported - Past Family History Mother Family Medical History: Cancer Additional Family Medical History / Comment(s): BREAST Father Family Medical History: Cancer Additional Family Medical History / Comment(s): skin cancer General Exam Limitations: no limitations General appearance: alert, in distress Head exam: Present: atraumatic, normocephalic, normal inspection Eye exam: Present: normal appearance, PERRL, EOMI. Absent: scleral icterus, conjunctival injection, periorbital swelling ENT exam: Present: normal exam, mucous membranes moist Neck exam: Present: normal inspection, full ROM. Absent: tenderness, meningismus, lymphadenopathy Respiratory exam: Present: normal lung sounds bilaterally. Absent: respiratory distress, wheezes, rales, rhonchi, stridor Cardiovascular Exam: Present: regular rate, normal rhythm, normal heart sounds. Absent: systolic murmur, diastolic murmur, rubs, gallop, clicks GI/Abdominal exam: Present: soft, normal bowel sounds. Absent: distended, tenderness, guarding, rebound, rigid Extremities exam: Present: tenderness (Tender to the right wrist. Dinner fork deformity noted.), normal capillary refill, other (No break in skin integrity. Distal sensation intact. Pulses normal. Capillary refill is normal. No other areas of tenderness. Full range of motion all phalanges, hand, and elbow.). Absent: full ROM Back exam: Present: normal inspection Neurological exam: Present: alert, oriented X3, CN II-XII intact Psychiatric exam: Present: normal affect, normal mood Skin exam: Present: warm, dry, intact, normal color. Absent: rash Course Vital Signs 06/29/21 21:35 Temperature 97.9 F Pulse Rate 96 Respiratory 18 Rate Blood Pressure 190/111 O2 Sat by Pulse 100 Oximetry Procedures - Orthopedic Splinting/Casting Injury #1 Side: right Upper Extremity Injury Location: wrist Upper Extremity Immobilizer: sugar tong splint, Jean-Pierre wrap Additional Comments: Distal miraculous status intact both pre-and post-application. A splint applied by me. Sling applied. Medical Decision Making - Medical Decision Making Closed, slightly angulated distal radius fracture on the right, impacted, neurovascular intact, sugar tong splint applied. Patient given follow-up with orthopedics. Discussed treatment plan. All questions answered. Follow-up with your regular physician as directed. Return to the ER immediately if any symptoms worsen, new symptoms arise, or any other problems develop. The case was discussed in detail with ED attending physician. Presentation, findings, treatment plan discussed in detail. Dr. Ramirez Disposition Clinical Impression: Closed fracture of distal end of right radius Narrative: Impacted, slightly angulated distal radius fracture on the right Disposition: HOME SELF-CARE Condition: Good Instructions (If sedation given, give patient instructions): Arm Fracture in Adults (ED) Additional Instructions: Keep the splint on until follow-up with the orthopedic physician. Wear the sling as directed. Elevate, apply ice 20 minutes on and off. Shelly to splinting material. Call the orthopedic physician on Friday for follow- up. Is patient prescribed a controlled substance at d/c from ED?: No Referrals: Jairo Rubin DO [Doctor of Osteopathic Medicine] - 07/02/21 Time of Disposition: 22:51
--- NOTE | 2021-06-29 22:13 | XR ---
EXAMINATION TYPE: XR wrist complete RT DATE OF EXAM: 06/29/2021 COMPARISON: NONE HISTORY: Pain TECHNIQUE: 3 views FINDINGS: There is acute transverse fracture distal radial metaphysis. There is slight impaction. The re is mild anterior angulation at the fracture site on the lateral view. No dislocation. The carpal b ones are intact. IMPRESSION: Acute mildly impacted transverse fracture distal radius.
[2021-06-29 23:00] VITALS: BP 180/98; PULSE 89; TEMP 98.8
== END 2021-06-29 22:59 | disposition home or self-care (01) ==
LOC: EC 21:33
DX: S52.501A Unspecified fracture of the lower end of right radius, initial encounter for closed fracture (principal); I10 Essential (primary) hypertension; F17.200 Nicotine dependence, unspecified, uncomplicated; Z79.899 Other long term (current) drug therapy; W01.0XXA Fall on same level from slipping, tripping and stumbling without subsequent striking against object, initial encounter
CPT/HCPCS: 29125; 99284

== ENCOUNTER → 2021-07-03 | Outpatient (CLI) | payer SELFPAY ==
--- NOTE | 2021-07-03 15:02 | XR ---
EXAMINATION TYPE: XR chest 2V DATE OF EXAM: 07/03/2021 COMPARISON: Chest x-ray July 31, 2020 HISTORY: Presurgical study. TECHNIQUE: Frontal and lateral views of the chest are obtained. FINDINGS: There is no suspicious new focal air space opacity, pleural effusion, or pneumothorax seen . The cardiac silhouette size remains within normal limits. Fusion plates or healed fracture left cl avicle redemonstrated. IMPRESSION: No acute process. No significant change from prior.
[2021-07-03 21:00] LABS: Basophils # (A) 0.14 X 10*3/uL (0.00-0.10); Basophils % (A) 1.8 %; Eosinophils # (A) 0.65 X 10*3/uL (0.04-0.35); Eosinophils % (A) 8.1 %; HCT 43.5 % (37.2-46.3); HGB 14.5 g/dL (12.0-15.0); Immature Grans, Automated 0.3 %; Lymphocytes # (A) 2.38 X 10*3/uL (0.90-5.00); Lymphocytes % (A) 29.8 %; MCH 32.6 pg (27.0-32.0); MCHC 33.3 g/dL (32.0-37.0); MCV 97.8 fL (80.0-97.0); Monocytes # (A) 0.77 X 10*3/uL (0.20-1.00); Monocytes % (A) 9.6 %; NRBC Per 100 WBC 0 /100 WBCS (0.0-0.0); Neutrophils # (A) 4.02 X 10*3/uL (1.80-7.70); Neutrophils % (A) 50.4 %; Platelet Count 375 X 10*3/uL (140-440); RBC 4.45 X 10*6/uL (4.10-5.20); RDW 13.2 % (11.5-14.5); WBC 7.98 X 10*3/uL (4.50-10.00)
[2021-07-03 21:15] LABS: Anion Gap 10.7 mmol/L (10.00-18.00); Carbon Dioxide 24.5 mmol/L (20.0-27.5); Potassium 5.1 mmol/L (3.5-5.5)
== END | disposition home or self-care (01) ==
LOC: LABWHC1 13:33
PROVIDERS: ATTEND Orthopaedic Surgery
DX: Z01.818 Encounter for other preprocedural examination (principal); S52.501A Unspecified fracture of the lower end of right radius, initial encounter for closed fracture; X58.XXXA Exposure to other specified factors, initial encounter
CPT/HCPCS: 36415; 71046; 80051; 85025

== ENCOUNTER 2021-07-04 11:36 | Day surgery (SDC) | payer SELFPAY ==
[2021-07-03 08:25] VITALS: BMI 19.3
--- NOTE | 2021-07-04 09:17 | HP ---
HISTORY AND PHYSICAL CHIEF COMPLAINT: Right wrist pain. HISTORY OF PRESENT ILLNESS: The patient is a 55-year-old, [id number], unemployed female who presents with right wrist pain after an injury on 06/29/2021 after falling at home in her living room. She fell on the right wrist. Initially she was seen in the emergency room and was placed in a splint. She denies previous injury. She has been taking [place] for pain relief. PAST MEDICAL HISTORY: Significant for tobacco dependence. PAST SURGICAL HISTORY: Significant for cholecystectomy. CURRENT MEDICATIONS: Cyclobenzaprine, Celebrex. ALLERGIES: SHE DENIES DRUG ALLERGIES. FAMILY HISTORY: Significant for cancer. SOCIAL HISTORY: Significant for one pack per day tobacco use and social alcohol use. REVIEW OF SYSTEMS: Sixteen-point review of systems otherwise reviewed and is noncontributory. PHYSICAL EXAMINATION: On examination, the patient is approximately 5 feet 6 inches, 120 pounds of mesomorphic habitus. HEENT exam is nonfocal. Neck is supple. She is nontender about the right shoulder and elbow. On examination of her right wrist, she has large dorsal swelling. Skin is intact. She is tender over the distal radius. She has a dorsal deformity. She has limited range of motion secondary to pain. Light touch is distally intact in the digits. 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 X-rays of the right wrist were reviewed in the office and show an extra-articular distal radius fracture with dorsal angulation and comminution. IMPRESSION: Right extra-articular distal radius fracture, displaced/angulated. RECOMMENDATIONS: I talked to the patient at length regarding her condition along with treatment options. At this point with the degree of initial angulation and dorsal comminution, I recommended proceeding with surgical intervention. We will plan to proceed with open reduction and internal fixation. Potentially we will perform that as an outpatient procedure utilizing a regional block. Risks and benefits were discussed at length in layman's terms. I also discussed curtailing tobacco use to promote healing. MMODL / IJN: [id number] /
[~2021-07-04 11:36] MED LIST changes: -ACETAMINOPHEN TAB 500 MG TAB PO PRN; -GABAPENTIN 300 MG CAP PO PRN; +LACTATED RINGERS 1,000 ML IV SCH; -LIDOCAINE 1% (10MG/ML) FOR IV START INTRADERMA PRN; -MIDAZOLAM 2 MG/2 ML VIAL IV PRN; +MORPHINE SULFATE 4 MG/ML SYRINGE IV PRN; -ONDANSETRON 4 MG/2 ML VIAL IVP PRN; -TRANEXAMIC ACID 1,000 MG in SODIUM CHLORIDE 0.9% 100 ML IVPB PRN
[2021-07-04] MEDS ORDERED: LIDOCAINE 1% (10MG/ML) FOR IV START INTRADERMA ONE (12:58)
[2021-07-04] MEDS ORDERED: MIDAZOLAM 2 MG/2 ML VIAL IV ONE (13:12)
[2021-07-04] MEDS ORDERED: ePHEDrine 50 MG/ML 1 ML VIAL ONE (13:27)
[2021-07-04] MEDS ORDERED: PROPOFOL 10 MG/ML 20 ML VIAL IV ONE (13:27)
[2021-07-04] MEDS ORDERED: SUCCINYLCHOLINE CHLORIDE 100 MG/5 ML SYR IV ONE (13:27)
[2021-07-04] MEDS ORDERED: PHENYLEPHRINE-0.9% NACL SYG 1,000 MCG/10 ML SYRINGE ONE (13:27)
[2021-07-04] MEDS ORDERED: LIDOCAINE 2% INJ 20 MG/ML (2 ML VIAL) ONE (13:27)
[2021-07-04] MEDS ORDERED: fentaNYL (PF) 50 MCG/ML 2 ML AMP ONE (13:27)
[2021-07-04] MEDS ORDERED: ROPIVACAINE 5 MG/ML 30 ML VIAL ONE (13:27)
[2021-07-04] MEDS ORDERED: DEXAMETHASONE SOD PHOSPHATE 4 MG/ML 1 ML VIAL ONE (13:27)
[2021-07-04 13:30] VITALS: RESP 16
--- NOTE | 2021-07-04 13:38 | P.ANPRN ---
Procedure Note - Anesthesia - Nerve Block Performed Right Supraclavicular Single Time Out Performed: Yes Date of Procedure: 07/04/21 Procedure Start Time: 13:12 Procedure Stop Time: 13:17 Location of Patient: PreOp Indication: Acute Post-Operative Pain, Requested by Surgeon Sedation Type: Sedate with meaningful contact maintained Preparation: Sterile Prep Position: Supine Needle Types: Pajunk Needle Gauge: 21 Ultrasound used to visualize needle placement: Yes Ultrasound used to observe medication spread: Yes Blood Aspirated: No Pain Paresthesia on Injection Noted: No Resistance on Injection: Normal Image Stored and Saved: Yes Events: Uneventful and Well Tolerated (ropi .5% 20cc plus dexamethasone 4mg)
[2021-07-04] MEDS ORDERED: HYDROcodone/APAP 5-325MG 1 EACH TAB PO PRN ×2 (14:49)
[2021-07-04] MEDS ORDERED: HYDROmorphone 0.5 MG/0.5 ML SYRINGE IVP PRN (14:49)
[2021-07-04] MEDS ORDERED: SENNOSIDES-DOCUSATE SODIUM 1 EACH TAB PO PRN (14:49)
[2021-07-04 15:15] VITALS: TEMP 97.2
--- NOTE | 2021-07-04 15:16 | P.OP ---
Date of Procedure: 07/04/21 Preoperative Diagnosis: Displaced right extra-articular distal radius fracture Postoperative Diagnosis: Same Procedure(s) Performed: Open reduction and internal fixation right extra-articular distal radius fracture Implants: Arthrex standard width 3 hole volar plate Anesthesia: [facility] Surgeon: Vikram Huitron Pathology: none sent Condition: stable Disposition: PACU Indications for Procedure: The patient is a 55-year-old female who presents after falling injuring her ri ght wrist over the weekend. Upon evaluation she was noted have an angulated/displaced extra articular distal radius fracture with significant dorsal comminution. He discussion of the risks and benefits of operative intervention versus continued conservative measures was made with patient. She opted to proceed with surgery. Operative risks to include infection, neurovascular injury, development of blood clots, possible development of nonunion/malunion, possible tendon injury, possible need for subsequent procedures was discussed. Informed consent was obtained. Operative Findings: As below Description of Procedure: The patient was brought to the operating room, and after induction of general anesthesia the right upper extremity was prepped and draped in normal fashion. The tourniquet was inflated to 250 mmHg. An 8 cm incision was then made along the volar radial aspect of the right wrist centered over the flexor carpi radialis. Skin was incised sharply. Subcu tissues were divided bluntly. The flexor carpi radialis sheath was opened and the tendon was gently retracted ulnarly and the radial artery was retracted radially. The underlying fascia was opened. Contents the carpal canal were bluntly elevated ulnarly. A self- retaining retractor was placed. The pronator quadratus was elevated off the distal radius exposing the fracture site. This was cleaned of clot and debris. This was then provisionally reduced with longitudinal traction and manipulation. A 4 hole volar plate was placed provisionally along the volar surface and held in place with a K wire and all of our. This was verified with fluoroscopy. I felt this was adequate positioning. Proximally it was attached with 3.5 mm cortical screws the appropriate length. Distally locking smooth pegs were inserted of the appropriate length. This was again done with the aid of fluoroscopy. Final fluoroscopic view showed adequate reduction of the fracture, placement of the implant and zoroastrian of volar tilt. The wound was irrigated normal saline. The pronator quadratus was repaired with simple 3-0 Vicryl sutures. The subcu tissues reapproximated interrupted 3-0 Vicryl sutures. Skin was reapproximated with 4-0 subcuticular Prolene suture. Steri-Strips were applied. The tourniquet was deflated with less than 1 hour total tourniquet time. A sterile dressing in addition to a volar splint was placed. The patient was then awoken from general anesthesia and transferred to recovery room in good condition. Blood loss was estimated 5 mL. No complications were incurred. Sponge and needle counts were correct at the end of the case. A nurse assisted during the case.
--- NOTE | 2021-07-04 15:21 | FL ---
EXAMINATION TYPE: FL guidance operating room, XR wrist limited RT DATE OF EXAM: 07/04/2021 CLINICAL HISTORY: Right wrist fracture. TECHNIQUE: Fluoroscopy. Limited intraoperative views right wrist. COMPARISON: Right wrist x-ray 5 days ago.. FINDINGS: Fluoroscopic guidance was provided during open reduction internal fixation procedure perfo rmed by Dr. Huitron. A total of 26 seconds of fluoroscopic time was utilized during the procedure and 4 spot intraoperative images are acquired. Volar surface plate with multiple screws through comminuted fractured distal radial metaphysis is see n with satisfactory alignment after reduction and fixation. IMPRESSION: As Above.
[2021-07-04 16:26] VITALS: BP 136/87; PULSE 115
== END 2021-07-04 16:27 | disposition home or self-care (01) ==
LOC: OR 11:36
PROVIDERS: ATTEND Orthopaedic Surgery
DX: S52.551A Other extraarticular fracture of lower end of right radius, initial encounter for closed fracture (principal); W18.30XA Fall on same level, unspecified, initial encounter; F17.210 Nicotine dependence, cigarettes, uncomplicated; Z90.49 Acquired absence of other specified parts of digestive tract; Z79.899 Other long term (current) drug therapy; Z98.890 Other specified postprocedural states; Z97.2 Presence of dental prosthetic device (complete) (partial); Z80.9 Family history of malignant neoplasm, unspecified
CPT/HCPCS: 64415; 76942; 73100; 25607; C1713 ×2; J2250; J1100; J2405; J0690; J3010; J2795; J2370; J0330; J2704; J2001

== ENCOUNTER → 2021-11-06 | Outpatient (CLI) | payer OTHER ==
--- NOTE | 2021-11-07 07:54 | MM ---
Reason for Exam: Screening (asymptomatic). Last mammogram was performed 16 year(s) and 3 month(s) ago. Patient History: Menarche at age 12. First Full-Term at age 16. Postmenopausal. Mother had breast cancer, age 40. Risk Values: Eladia 5 year model risk: 2.3%. NCI Lifetime model risk: 14.5%. Prior Study Comparison: No prior studies available for comparison. Tissue Density: The breast tissue is heterogeneously dense. This may lower the sensitivity of mammography. Findings: Analyzed By CAD. Well-circumscribed 11 mm nodule 2.5 cm from the nipple lower inner quadrant. Ultrasound is recommended. No additional masses seen. No suspicious calcifications evident. Overall Assessment: Incomplete: need additional imaging evaluation, BI-RAD 0 Management: Diagnostic Breast Ultrasound of the left breast. A clinical breast exam by your physician is recommended on an annual basis and results should be correlated with mammographic findings. Electronically signed and approved by: Moises Linares M.D. Radiologis
== END | disposition home or self-care (01) ==
LOC: RADMAMWWP 11:17
PROVIDERS: ATTEND Family Medicine
DX: Z12.31 Encounter for screening mammogram for malignant neoplasm of breast (principal); Z78.0 Asymptomatic menopausal state; Z80.3 Family history of malignant neoplasm of breast
CPT/HCPCS: 77067

== ENCOUNTER → 2021-11-08 | Outpatient (CLI) | payer OTHER ==
--- NOTE | 2021-11-13 07:41 | USB ---
Reason for Exam: Additional evaluation requested from abnormal screening. Patient History: Menarche at age 12. First Full-Term at age 16. Postmenopausal. Mother had breast cancer, age 40. Risk Values: Eladia 5 year model risk: 2.3%. NCI Lifetime model risk: 14.5%. Technique: Method: Targeted. Prior Study Comparison: 08/01/2005 Bilateral Screening Mammogram, [facility]. 11/06/2021 Bilateral MG screening mammo w CAD, [facility]. Findings: The lower inner quadrant of the left breast, the axilla of the left breast and the retroareolar of the left breast were scanned. Left breast ultrasound shows at 7:00 position an oval 1.2 x 0.6 x 0.7 cm circumscribed lesion predominantly anechoic with curvilinear septum is slightly thickened felt to reflect septated cyst and felt to correspond to mammogram abnormality. Overall Assessment: Probably benign, BI-RAD 3 Management: Diagnostic Breast Ultrasound of the left breast in 6 months. Precautionary follow-up diagnostic left breast ultrasound in 6 months time to reassess. Patient told the findings and recommendations at time of dictation. Electronically signed and approved by: Denis Alexander M.D.
== END | disposition home or self-care (01) ==
LOC: RADUSWWP 13:01
PROVIDERS: ATTEND Family Medicine
DX: R92.8 Other abnormal and inconclusive findings on diagnostic imaging of breast (principal); Z78.0 Asymptomatic menopausal state; Z80.3 Family history of malignant neoplasm of breast

== ENCOUNTER → 2022-05-27 | Outpatient (CLI) | payer OTHER ==
--- NOTE | 2022-05-27 13:00 | USB ---
Reason for Exam: Follow-up at short interval from prior study. Patient History: Menarche at age 12. First Full-Term at age 16. Postmenopausal. Mother had breast cancer, age 40. Risk Values: Eladia 5 year model risk: 2.3%. NCI Lifetime model risk: 14.5%. Technique: Method: Targeted. Prior Study Comparison: 08/01/2005 Bilateral Screening Mammogram, [facility]. 11/06/2021 Bilateral MG screening mammo w CAD, [facility]. 11/08/2021 Left US breast workup limited , [facility]. Findings: The axilla of the left breast and the retroareolar of the left breast were scanned. Targeted ultrasound shows a 9 x 7 x 12 mm oval anechoic lesion with some peripheral hyperechoic material could reflect septated thin-walled cyst. This has similar appearance to prior exam. Benign-appearing lymph nodes in the left axilla. No new solid or cystic masses are identified. Overall Assessment: Benign, BI-RAD 2 Management: Screening Mammogram of both breasts in 6 months. Back on schedule. Results were given to the patient verbally at the time of exam. Electronically signed and approved by: Denis Alexander M.D.
== END | disposition home or self-care (01) ==
LOC: RADMAMWWP 12:25
PROVIDERS: ATTEND Family Medicine
DX: R92.8 Other abnormal and inconclusive findings on diagnostic imaging of breast (principal); Z78.0 Asymptomatic menopausal state; Z80.3 Family history of malignant neoplasm of breast

== ENCOUNTER → 2022-12-11 | Outpatient (CLI) | payer OTHER ==
--- NOTE | 2022-12-12 09:48 | MM ---
Reason for Exam: Screening (asymptomatic). Last mammogram was performed 1 year(s) and 2 month(s) ago. Patient History: Menarche at age 12. First Full-Term at age 16. Postmenopausal. Mother had breast cancer, age 40. Risk Values: Eladia 5 year model risk: 2.4%. NCI Lifetime model risk: 14.2%. Prior Study Comparison: 08/01/2005 Bilateral Screening Mammogram, [facility]. 11/06/2021 Bilateral MG screening mammo w CAD, [facility]. Tissue Density: The breast tissue is heterogeneously dense. This may lower the sensitivity of mammography. Findings: Analyzed By CAD. There is no suspicious group of microcalcifications or new suspicious mass in either breast. Overall Assessment: Benign, BI-RAD 2 Management: Screening Mammogram of both breasts in 1 year. . Patient should continue monthly self-breast exams. A clinical breast exam by your physician is recommended on an annual basis. This exam should not preclude additional follow-up of suspicious palpable abnormalities. Note on Eladia scores and lifetime risk: 1. A Eladia score greater than 3% is considered moderate risk. If this is the case, consider specialist referral to assess eligibility for a risk reducing agent. 2. If overall lifetime risk for the development of breast cancer is 20% or higher, the patient may qualify for future screening with alternating mammogram and breast MRI. Electronically signed and approved by: Moises Linares M.D. Radiologis
== END | disposition home or self-care (01) ==
LOC: RADMAMWWP 10:41
PROVIDERS: ATTEND Family Medicine
DX: Z12.31 Encounter for screening mammogram for malignant neoplasm of breast (principal); Z78.0 Asymptomatic menopausal state; Z80.3 Family history of malignant neoplasm of breast
CPT/HCPCS: 77067

== ENCOUNTER → 2023-06-23 | Outpatient (CLI) | payer OTHER ==
--- NOTE | 2023-06-25 09:48 | CTL ---
EXAMINATION TYPE: CT Low Dose Lung DATE OF EXAM ORDERED: 06/23/2023 HISTORY: 57-year-old female personal history of nicotine dependence, current smoker with 40 pack-year history. Lung cancer screening CT DLP: 45.[address] CTDI: 1.3 mGy Automated exposure control for dose reduction was used. SCREENING VISIT: Baseline COMPARISON: CT chest 03/30/2018 TECHNIQUE: Low dose computed tomography scan was performed through the chest with coronal and sagitta l reconstructions. CT DIAGNOSTIC QUALITY: Satisfactory FINDINGS: The heart is normal size without pericardial effusion. Mild proximal LAD coronary artery calcificatio ns are present. Mildly ectatic ascending aorta 3.8 cm with conventional arch vessel branching anatomy. No thoracic lymphadenopathy by CT size criteria. Minimal biapical pleural parenchymal scarring with mild emphysematous change and mild to moderate dif fuse bronchial wall thickening. Some minimal stranding basilar atelectasis. No consolidation or pleur al effusion. * Tiny 3 mm right upper lobe pulmonary nodule, axial image 52. * 3 mm subpleural pulmonary nodule lateral right upper lobe, axial image 54. * 3 mm right perihilar pulmonary nodule, axial image 138. * 3 mm right middle lobe pulmonary nodule, axial image 183. Visualized upper abdomen shows cholecystectomy clips. Bones: No osseous destructive process. IMPRESSION: 1. LungRADS 2, benign. A few scattered 3 mm pulmonary nodules on baseline screening. 2. COPD with mild emphysema. Recommend smoking cessation. CT LUNG RAD AND CT CHEST RECOMMENDATION: Lung-Rad 2 Benign Appearance or Behavior: Continue annual sc reening with LDCT in 12 months. S Modifier (other clinically significant findings): None
== END | disposition home or self-care (01) ==
LOC: RADCTMAIN 11:58
PROVIDERS: ATTEND Family Medicine
DX: Z12.2 Encounter for screening for malignant neoplasm of respiratory organs (principal); J43.9 Emphysema, unspecified; J44.9 Chronic obstructive pulmonary disease, unspecified; F17.210 Nicotine dependence, cigarettes, uncomplicated
CPT/HCPCS: 71271

== ENCOUNTER 2023-10-08 19:55 | Emergency (ER) | payer OTHER ==
--- NOTE | 2023-10-08 20:13 | ED ---
Extremity Problem HPI - General Source: patient Mode of arrival: wheelchair Limitations: no limitations <Bro Shi - Last Filed: 10/08/23 20:13> - History of Present Illness MD Complaint: other -: hour(s) Location: right, upper extremity History of Same: No Quality: other Consistency: constant Improves with: nothing Worsens with: nothing Associated Symptoms: denies other symptoms <Omar Ramirez - Last Filed: 11/11/23 12:08> - General Chief complaint: Extremity Problem,Nontraumatic Stated complaint: R hand numbness Time Seen by Provider: 10/08/23 20:13 - History of Present Illness Initial comments: Quick note: 58-year-old female presenting with chief complaint of paresthesia to the right hand. She states that she is having a [id number] sensation to the hand since this morning. She denies any injury or trauma. She still has full range of motion of the hand. (Bro Shi) Patient is a 58-year-old woman who presents with complaint that she is having weakness and numbness of the right hand. The patient states that it has been present approximately 12 hours. She noticed it in the morning. She states that it did not seem to be present on waking but shortly after she felt pins and needle sensation to her right hand. She states that the hand feels weaker than on the other side. She states that her mother convinced her to come to the emergency department. (Omar Ramirez) - Related Data Previous Rx's Medication Instructions Recorded HYDROcodone/APAP 5-325MG [[place] 1 tab PO Q6HR PRN 3 Days #12 tab 06/29/21 5-325] Allergies Allergy/AdvReac Type Severity Reaction Status Date / Time No Known Allergies Allergy Verified 10/08/23 19:59 Review of Systems ROS Other: All systems not noted in ROS Statement are negative. <Bro Shi - Last Filed: 10/08/23 20:13> ROS Other: All systems not noted in ROS Statement are negative. Constitutional: Denies: fever, chills Eyes: Denies: vision change Respiratory: Denies: cough, dyspnea Cardiovascular: Denies: chest pain, palpitations, syncope Gastrointestinal: Denies: abdominal pain, vomiting, diarrhea Genitourinary: Denies: dysuria, hematuria Skin: Denies: rash Neurological: Reports: weakness, numbness. Denies: headache, confusion <BravoshivaniOmar - Last Filed: 11/11/23 12:08> ROS Statement: Those systems with pertinent positive or pertinent negative responses have been documented in the HPI. Past Medical History Past Medical History: Hypertension, Musculoskeletal Disorder Additional Past Medical History / Comment(s): Hx fx Lt Clavicle. Poss seizure 12 years ago, ? episode x1. Lower back pain, radiates into Rt leg, NT in leg. FX RT WRIST 06/29/21. PT STATES SHE LOST HER INSURANCE SO SHE IS NOT TAKING HTN MEDS AT THIS TIME History of Any Multi-Drug Resistant Organisms: None Reported Past Surgical History: Back Surgery, Cholecystectomy, Orthopedic Surgery Additional Past Surgical History / Comment(s): ORIF left clavicle, has plate/screws. pain clinic procedures, BACK SURGERY 08/2020 Past Anesthesia/Blood Transfusion Reactions: No Reported Reaction Past Psychological History: No Psychological Hx Reported Smoking Status: Current every day smoker Past Alcohol Use History: Daily Past Drug Use History: None Reported - Past Family History Mother Family Medical History: Cancer Additional Family Medical History / Comment(s): BREAST Father Family Medical History: Cancer Additional Family Medical History / Comment(s): skin cancer <Bro Shi - Last Filed: 10/08/23 20:13> General Exam Limitations: no limitations <Bro Shi - Last Filed: 10/08/23 20:13> Limitations: no limitations General appearance: alert, in no apparent distress Head exam: Present: atraumatic, normocephalic Eye exam: Present: normal appearance. Absent: scleral icterus, conjunctival injection ENT exam: Present: mucous membranes dry Neck exam: Present: normal inspection, full ROM. Absent: tenderness, meningismus Respiratory exam: Present: normal lung sounds bilaterally. Absent: respiratory distress, wheezes, rales, rhonchi, stridor Cardiovascular Exam: Present: regular rate, normal rhythm, normal heart sounds. Absent: systolic murmur, diastolic murmur, rubs, gallop GI/Abdominal exam: Present: soft. Absent: distended, tenderness, guarding Extremities exam: Present: normal inspection, normal capillary refill. Absent: pedal edema, calf tenderness Back exam: Present: normal inspection. Absent: CVA tenderness (R), CVA tenderness (L) Neurological exam: Present: alert, oriented X3, CN II-XII intact, motor sensory deficit Expanded Patient oriented to: Present: person, place, time Speech: Present: fluid speech Cerebellar function: Finger to Nose: Normal Sensory exam: Upper Extremity Light Touch: Normal Motor strength exam: RUE: 4, LUE: 5, RLE: 5, LLE: 5 Eye Response: (4) open spontaneously Motor Response: (6) obeys commands Verbal Response: (5) oriented Skin exam: Present: warm, dry, intact, normal color. Absent: rash <Omar Ramirez - Last Filed: 11/11/23 12:08> - General Exam Comments Initial Comments: Visual Physical Exam Vital signs reviewed General: Well-appearing, nontoxic, no acute distress. Head: Normocephalic, atraumatic Eyes: PERRLA, EOMI ENT: Airway patent Chest: Nonlabored breathing Skin: No visual rash, normal skin tone Neuro: Alert and oriented 3 Musculoskeletal: No gross abnormalities (Bro Shi) Course Vital Signs 10/08/23 10/08/23 10/08/23 19:56 20:43 22:21 Temperature 97.7 F 97.9 F Pulse Rate 92 81 77 Respiratory 18 16 16 Rate Blood Pressure 148/91 138/94 133/89 O2 Sat by Pulse 100 100 97 Oximetry 10/09/23 00:00 Temperature Pulse Rate 75 Respiratory 18 Rate Blood Pressure 148/92 O2 Sat by Pulse 100 Oximetry Medical Decision Making <Bro Shi - Last Filed: 10/08/23 20:13> - Lab Data Result diagrams: 10/08/23 21:51 10/08/23 21:51 <Omar Ramirez - Last Filed: 11/11/23 12:08> - Medical Decision Making I performed the quick note portion of this visit, electronically signed Bro Shi PA-C (Bro Shi) This 58-year-old woman who presents with weakness and numbness of the right hand. On the exam there are strong pulses at the level of the wrist. There is no evident arterial insufficiency. The patient does have weakness throughout the wrist and hand. Patient states there is also sensory decrease. Had CT of the brain that I interpreted as negative for acute intracranial hemorrhage or bony injury. The patient had CT angiography that I interpreted as negative for arterial occlusion. The patient had chest x-ray which I interpreted as negative for acute infiltrate, pneumothorax, congestive heart failure Was pt. sent in by a medical professional or institution ([facility], [facility], urgent care, hospital, or assisted...) When possible be specific @ -[No] Did you speak to anyone other than the patient for history (EMS, parent, family, police, friend...)? What history was obtained from this source @ -[No] Did you review nursing and triage notes (agree or disagree)? Why? @ -[I reviewed and agree with nursing and triage notes] Were old charts reviewed (outside hosp., previous admission, EMS record, old EKG, old radiological studies, urgent care reports/EKG's, assisted records)? Report findings @ -[No old charts were reviewed] Differential Diagnosis (chest pain, altered mental status, abdominal pain women, abdominal pain men, vaginal bleeding, weakness, fever, dyspnea, syncope, headache, dizziness, GI bleed, back pain, seizure, CVA, palpatations, mental health, musculoskeletal)? @ -[Differential CVA Ischemic stroke, hemorrhagic stroke, brain tumor, atypical migraine, Wernicke's encephalopathy, seizure, multiple sclerosis, meningitis, encephalitis, hypoglycemia, Guillain-Mccartney, electrolytes disturbance, myasthenia gravis.... This is not meant to be an all-inclusive list EKG interpreted by me (3pts min.). @ -[As above] X-rays interpreted by me (1pt min.). @ -[I interpreted as above CT interpreted by me (1pt min.). @ -[I interpreted as above U/S interpreted by me (1pt. min.). @ -[None done] What testing was considered but not performed or refused? (CT, X-rays, U/S, labs)? Why? @ -[None] What meds were considered but not given or refused? Why? @ -[None] Did you discuss the management of the patient with other professionals (pr ofessionals i.e. [facility], [facility], lab, RT, psych nurse, social worker delinquency prevention, bag press operator, teacher, development officer, counseling case manager)? Give summary @ -[No] Was smoking cessation discussed for >3mins.? @ -[No] Was critical care preformed (if so, how long)? @ -[No] Were there social determinants of health that impacted care today? How? (Homelessness, low income, unemployed, alcoholism, drug addiction, transportation, low edu. Level, literacy, decrease access to med. care, [facility], rehab)? @ -[No] Was there de-escalation of care discussed even if they declined (Discuss DNR or withdrawal of care, Hospice)? DNR status @ -[No] What co-morbidities impacted this encounter? (DM, HTN, Smoking, COPD, CAD, Cancer, CVA, ARF, Chemo, Hep., AIDS, mental health diagnosis, sleep apnea, morbid obesity)? @ -[None] Was patient admitted / discharged? Hospital course, mention meds given and route, prescriptions, significant lab abnormalities, going to OR and other pertinent info. @ -[Patient is 58-year-old woman with acute radial nerve palsy. The work appears unremarkable. She will have close follow-up with neurology. Discussed the appropriate further care as well as return parameters. Undiagnosed new problem with uncertain prognosis? @ -[No] Drug Therapy requiring intensive monitoring for toxicity (Heparin, Nitro, Insulin, Cardizem)? @ -[No] Were any procedures done? @ -[No] Diagnosis/symptom? @ -[Acute radial nerve palsy Mild hyponatremia Acute, or Chronic, or Acute on Chronic? @ -[Acute Uncomplicated (without systemic symptoms) or Complicated (systemic symptoms)? @ -[Uncomplicated Side effects of treatment? @ -[No] Exacerbation, Progression, or Severe Exacerbation? @ -[No] Poses a threat to life or bodily function? How? (Chest pain, [place], [place], pneumonia, PE, COPD, DKA, ARF, appy, cholecystitis, CVA, Diverticulitis, Homicidal, Suicidal, threat to staff... and all critical care pts) @ -[No] (Omar Ramirez) - Lab Data Lab Results 10/08/23 10/08/23 10/08/23 Range/Units 21:51 21:51 21:51 WBC 6.6 (3.8-10.6) k/uL RBC 3.92 (3.80-5.40) m/uL Hgb 13.2 (11.4-16.0) gm/dL Hct 38.9 (34.0-46.0) % MCV 99.2 (80.0-100.0) fL MCH 33.6 (25.0-35.0) pg MCHC 33.8 (31.0-37.0) g/dL RDW 12.4 (11.5-15.5) % Plt Count 358 (150-450) k/uL MPV 7.4 Neutrophils % 49 % Lymphocytes % 34 % Monocytes % 5 % Eosinophils % 10 % Basophils % 1 % Neutrophils # 3.2 (1.3-7.7) k/uL Lymphocytes # 2.3 (1.0-4.8) k/uL Monocytes # 0.3 (0-1.0) k/uL Eosinophils # 0.7 (0-0.7) k/uL Basophils # 0.1 (0-0.2) k/uL PT 10.0 (10.0-12.5) sec INR 0.9 (<1.2) APTT 25.7 (22.0-30.0) sec Sodium 126 L (137-145) mmol/L Potassium 4.3 (3.5-5.1) mmol/L Chloride 96 L (98-107) mmol/L Carbon Dioxide 23 (22-30) mmol/L Anion Gap 7 mmol/L BUN <2 L (7-17) mg/dL Creatinine 0.45 L (0.52-1.04) mg/dL Est GFR (CKD-EPI)AfAm >90 (>60 ml/min/1.73 sqM) Est GFR (CKD-EPI)NonAf >90 (>60 ml/min/1.73 sqM) Glucose 65 L (74-99) mg/dL POC Glucose (mg/dL) (70-110) mg/dL POC Glu Transportation Services Representative ID Calcium 9.4 (8.4-10.2) mg/dL Total Bilirubin 0.6 (0.2-1.3) mg/dL AST 55 H (14-36) U/L ALT 34 (4-34) U/L Alkaline Phosphatase 83 (38-126) U/L Creatine Kinase 129 (30-135) U/L Troponin I (0.000-0.034) ng/mL Total Protein 6.9 (6.3-8.2) g/dL Albumin 4.3 (3.5-5.0) g/dL 10/08/23 10/08/23 Range/Units 21:51 22:54 WBC (3.8-10.6) k/uL RBC (3.80-5.40) m/uL Hgb (11.4-16.0) gm/dL Hct (34.0-46.0) % MCV (80.0-100.0) fL MCH (25.0-35.0) pg MCHC (31.0-37.0) g/dL RDW (11.5-15.5) % Plt Count (150-450) k/uL MPV Neutrophils % % Lymphocytes % % Monocytes % % Eosinophils % % Basophils % % Neutrophils # (1.3-7.7) k/uL Lymphocytes # (1.0-4.8) k/uL Monocytes # (0-1.0) k/uL Eosinophils # (0-0.7) k/uL Basophils # (0-0.2) k/uL PT (10.0-12.5) sec INR (<1.2) APTT (22.0-30.0) sec Sodium (137-145) mmol/L Potassium (3.5-5.1) mmol/L Chloride (98-107) mmol/L Carbon Dioxide (22-30) mmol/L Anion Gap mmol/L BUN (7-17) mg/dL Creatinine (0.52-1.04) mg/dL Est GFR (CKD-EPI)AfAm (>60 ml/min/1.73 sqM) Est GFR (CKD-EPI)NonAf (>60 ml/min/1.73 sqM) Glucose (74-99) mg/dL POC Glucose (mg/dL) 89 (70-110) mg/dL POC Glu Transportation Services Representative ID [place] Calcium (8.4-10.2) mg/dL Total Bilirubin (0.2-1.3) mg/dL AST (14-36) U/L ALT (4-34) U/L Alkaline Phosphatase (38-126) U/L Creatine Kinase (30-135) U/L Troponin I <0.012 (0.000-0.034) ng/mL Total Protein (6.3-8.2) g/dL Albumin (3.5-5.0) g/dL Disposition <Bro Shi - Last Filed: 10/08/23 20:13> Is patient prescribed a controlled substance at d/c from ED?: No <Omar Ramirez - Last Filed: 11/11/23 12:08> Clinical Impression: Acute radial nerve palsy of right upper extremity Disposition: HOME SELF-CARE Condition: Good Instructions (If sedation given, give patient instructions): Radial Nerve Palsy (ED) Referrals: Alvarado Sanchez DO [Primary Care Provider] - 1-2 days Cierra Mzt MD [REFERRING] - 1-2 days
[2023-10-08 20:47] VITALS: TEMP 97.9
--- NOTE | 2023-10-08 21:54 | CT ---
EXAMINATION TYPE: CT brain wo con CT DLP: 1208.9 mGycm, Automated exposure control for dose reduction was used. DATE OF EXAM: 10/08/2023 9:39 PM COMPARISON: None. CLINICAL INDICATION:Female, 58 years old with history of Neuro deficit, acute, stroke suspected, RIgh t hand numbness since this morning. Denies injury Neuro deficit, acute, stroke suspected TECHNIQUE: Brain: Axial CT images of the brain were obtained with coronal and sagittal reformats created and rev iewed. Contrast used: None. Oral contrast used: None. FINDINGS: Brain: Extra-axial spaces: No abnormal extra-axial fluid collections. Ventricular system: Dilatation in proportion to cerebral atrophy. Cerebral parenchyma: Cerebral atrophy. No acute intraparenchymal hemorrhage or mass effect. The gresham -white junction is well differentiated. Scattered hypoattenuating areas are seen within the white mat ter. Cerebellum: There is prominence of the retrocerebellar CSF. Mass effect: No evidence of midline shift. Intracranial vasculature: Atherosclerotic calcifications of the intracranial vessels. Soft tissues: Normal. Calvarium/osseous structures: No depressed skull fracture. Paranasal sinuses and mastoid air cells: Mild scattered paranasal sinus disease. Visualized orbits: Orbital contents are intact. IMPRESSION: 1. No acute intracranial process. 2. Nonspecific white matter changes, likely secondary to chronic small vessel ischemic disease. 3. There is mild prominence of the retrocerebellar CSF which may relate to anatomic variant magna cis terna versus an arachnoid cyst.
--- NOTE | 2023-10-08 21:55 | XR ---
EXAMINATION TYPE: XR chest 2V DATE OF EXAM: 10/08/2023 9:40 PM CLINICAL INDICATION:Female, 58 years old with history of altered mental status; [facility] COMPARISON: None TECHNIQUE: XR chest 2V Frontal view of the chest. FINDINGS: Lungs/Pleura: There is no evidence of pleural effusion, focal consolidation, or pneumothorax. Pulmonary vascularity: Unremarkable. Heart/mediastinum: Cardiomediastinal silhouette is unremarkable. Musculoskeletal: No acute osseous pathology. Left clavicular fixation hardware appreciated. Other findings: None IMPRESSION: No acute cardiopulmonary disease/process.
[2023-10-08 22:20] LABS: Basophils # (A) 0.1 k/uL (0-0.2); Basophils % (A) 1 %; Eosinophils # (A) 0.7 k/uL (0-0.7); Eosinophils % (A) 10 %; HCT 38.9 % (34.0-46.0); HGB 13.2 gm/dL (11.4-16.0); Lymphocytes # (A) 2.3 k/uL (1.0-4.8); Lymphocytes % (A) 34 %; MCH 33.6 pg (25.0-35.0); MCHC 33.8 g/dL (31.0-37.0); MCV 99.2 fL (80.0-100.0); Mean Platelet Volume 7.4; Monocytes # (A) 0.3 k/uL (0-1.0); Monocytes % (A) 5 %; Neutrophils # (A) 3.2 k/uL (1.3-7.7); Neutrophils % (A) 49 %; Platelet Count 358 k/uL (150-450); RBC 3.92 m/uL (3.80-5.40); RDW 12.4 % (11.5-15.5); WBC 6.6 k/uL (3.8-10.6)
[2023-10-08 22:29] LABS: INR 0.9 (<1.2); Partial Thromboplastin Time 25.7 sec (22.0-30.0)
--- NOTE | 2023-10-08 22:34 | CT ---
EXAMINATION TYPE: CT angio head neck CT DLP: 335.2 mGycm, Automated exposure control for dose reduction was used. DATE OF EXAM: 10/08/2023 9:49 PM COMPARISON: CT head from the same day.. CLINICAL INDICATION:Female, 58 years old with history of Neuro deficit, acute, stroke suspected; PHH, RIght hand numbness since this morning. Denies injury Neuro deficit, acute, stroke suspected TECHNIQUE: Axially acquired helical CT angiogram of the head and neck was obtained with contrast. Axi al images are supplemented with 3D reconstructions and MIP images which were post-processed at an in dependent workstation. NASCET criteria used. Contrast used:65 ml mL of Isovue 370 with IV Contrast, Oral contrast used: None. FINDINGS: CTA HEAD: See noncontrasted head CT from the same day for further intracranial details. The visualized portions of the internal carotid arteries, middle cerebral arteries, anterior cerebral arteries, and posterior cerebral arteries are patent. Bilateral posterior communicating arteries are hypoplastic. The basilar and vertebral arteries are patent. CTA NECK: Right Carotid System: The common carotid artery and external carotid artery are patent. The carotid bifurcation demonstrate s mild atherosclerosis with no evidence of hemodynamically significant stenosis. The remaining portio ns of the internal carotid artery demonstrate normal size without significant narrowing. Left Carotid System: The common carotid artery and external carotid artery are patent. The carotid bifurcation demonstrate s mild atherosclerosis with no evidence of hemodynamically significant stenosis. The remaining portio ns of the internal carotid artery demonstrate normal size without significant narrowing. Vertebral arteries are patent without evidence hemodynamically significant stenosis. Aortic arch is unremarkable. The origins of the great vessels are patent. No evidence of hemodynamica lly significant stenosis. Upper thorax: Centrilobular emphysematous changes. Subcentimeter hypodense foci in the bilateral thyroid lobes like ly relates nodules. IMPRESSION: 1. No evidence of dissection of the cervical internal carotid arteries or vertebral arteries or any e vidence of significant stenosis at the carotid bifurcations. 2. No evidence of intracranial high-grade stenosis or intracranial aneurysm. 3. Centrilobular emphysema.
[2023-10-08 22:46] LABS: ALT 34 U/L (4-34); AST 55 U/L (14-36); African American GFR (CKD) >90 (>60 ml/min/1.73 sqM); Albumin 4.3 g/dL (3.5-5.0); Alkaline Phosphatase 83 U/L (38-126); Anion Gap 7 mmol/L; Blood Urea Nitrogen <2 mg/dL (7-17); Calcium 9.4 mg/dL (8.4-10.2); Carbon Dioxide 23 mmol/L (22-30); Chloride 96 mmol/L (98-107); Creatine Kinase 129 U/L (30-135); Glucose 65 mg/dL (74-99); Non-African American GFR(CKD) >90 (>60 ml/min/1.73 sqM); Potassium 4.3 mmol/L (3.5-5.1); Sodium 126 mmol/L (137-145); Total Bilirubin 0.6 mg/dL (0.2-1.3); Total Protein 6.9 g/dL (6.3-8.2)
[2023-10-08 22:57] LABS: Glucose,Whole Blood 89 mg/dL (70-110)
[2023-10-08] MEDS: NICOTINE 14MG/24HR PATCH TRANSDERM STA (23:40)
[2023-10-08] MEDS: SODIUM CHLORIDE 0.9% 500 ML 500 ML IV STA (23:40)
[2023-10-09 00:09] VITALS: BP 148/92; PULSE 75; RESP 18
== END 2023-10-09 00:10 | disposition home or self-care (01) ==
LOC: EC 19:55
CPT/HCPCS: 36415; 70450; 70496; 70498; 71046; 80053; 82550; 84484; 85025; 85610; 85730; 93005; 99284

== ENCOUNTER → 2024-03-24 | Outpatient (CLI) | payer OTHER ==
--- NOTE | 2024-03-25 08:25 | MM ---
Reason for Exam: Screening (asymptomatic). Last mammogram was performed 1 year(s) and 3 month(s) ago. Patient History: Menarche at age 12. First Full-Term at age 16. Postmenopausal. Mother had breast cancer, age 40. Risk Values: Eladia 5 year model risk: 2.5%. NCI Lifetime model risk: 13.8%. Prior Study Comparison: 08/01/2005 Bilateral Screening Mammogram, [facility]. 11/06/2021 Bilateral MG screening mammo w CAD, [facility]. 12/11/2022 Bilateral MG screening mammo w CAD, [facility]. Tissue Density: The breasts are heterogeneously dense, which may obscure small masses. Findings: Analyzed By CAD. There is a new 2.5 cm irregular mass with spiculated margins anterior medial aspect of the left breast.There is a new 2.5 cm focal distortion anterior medial aspect of the left breast. Overall Assessment: Incomplete: need additional imaging evaluation, BI-RAD 0 Management: Diagnostic Breast Ultrasound of the left breast. . Patient should continue monthly self-breast exams. A clinical breast exam by your physician is recommended on an annual basis. This exam should not preclude additional follow-up of suspicious palpable abnormalities. Note on Eladia scores and lifetime risk: 1. A Eladia score greater than 3% is considered moderate risk. If this is the case, consider specialist referral to assess eligibility for a risk reducing agent. 2. If overall lifetime risk for the development of breast cancer is 20% or higher, the patient may qualify for future screening with alternating mammogram and breast MRI. [facility], , 03/25/2024 8:22 AM. Electronically signed and approved by: Denis Alexander M.D.
== END | disposition home or self-care (01) ==
LOC: RADMAMWWP 14:38
PROVIDERS: ATTEND Family Medicine
DX: Z12.31 Encounter for screening mammogram for malignant neoplasm of breast (principal); Z78.0 Asymptomatic menopausal state; Z80.3 Family history of malignant neoplasm of breast; R92.333 Mammographic heterogeneous density, bilateral breasts
CPT/HCPCS: 77067

== ENCOUNTER → 2024-04-05 | Outpatient (CLI) | payer OTHER ==
--- NOTE | 2024-04-06 08:26 | USB ---
Reason for Exam: Clinical finding. Patient History: Menarche at age 12. First Full-Term at age 16. Postmenopausal. Mother had breast cancer, age 40. Risk Values: Eladia 5 year model risk: 2.5%. NCI Lifetime model risk: 13.8%. Technique: Method: Targeted. Prior Study Comparison: 11/06/2021 Bilateral MG screening mammo w CAD, [facility]. 05/27/2022 Left US breast LT, [facility]. 12/11/2022 Bilateral MG screening mammo w CAD, [facility]. 03/24/2024 Bilateral MG screening mammo w CAD, [facility]. Findings: The axilla of the left breast and the retroareolar of the left breast were scanned. Technique utilized:US breast workup limited LT Image; Ultrasound imaging of: Area of concern, retroareolar region and axilla. Left breast: Irregular shaped soft tissue mass at left breast 9:00 measuring up to 11 x 9 x 6 mm which is taller than wide with irregular borders and hypoechoic echotexture and shadowing present.. Adjacent lesion 8:00 is also visualized in one of the views 2 cm from the nipple. No abnormal lymph nodes with thickened cortex in the axilla. Overall Assessment: Highly suggestive of malignancy, BI-RAD 5 Management: Ultrasound Core Biopsy of the left breast. A clinical breast exam by your physician is recommended on an annual basis and results should be correlated with mammographic findings. This exam should not preclude additional follow-up of suspicious palpable abnormalities. Results were given to the patient verbally at the time of exam. [facility], , 04/06/2024 8:08 AM. Electronically signed and approved by: David Briceño DO
== END | disposition home or self-care (01) ==
LOC: RADUSWWP 15:39
PROVIDERS: ATTEND Family Medicine
DX: R92.8 Other abnormal and inconclusive findings on diagnostic imaging of breast (principal); N63.20 Unspecified lump in the left breast, unspecified quadrant; Z78.0 Asymptomatic menopausal state; Z80.3 Family history of malignant neoplasm of breast

== ENCOUNTER → 2024-04-26 | Day surgery (SDC) | payer OTHER ==
--- NOTE | 2024-04-30 11:24 | MM ---
Reason for Exam: Post Procedure Mammogram. Last screening mammogram was performed 1 month(s) ago. Patient History: Menarche at age 12. First Full-Term at age 16. Postmenopausal. Mother had breast cancer, age 40. Risk Values: Eladia 5 year model risk: 2.5%. NCI Lifetime model risk: 13.8%. Prior Study Comparison: 11/06/2021 Bilateral MG screening mammo w CAD, [facility]. 12/11/2022 Bilateral MG screening mammo w CAD, [facility]. 03/24/2024 Bilateral MG screening mammo w CAD, [facility]. Tissue Density: Left: The breasts are heterogeneously dense, which may obscure small masses. Pathology Description: Location: 9 o'clock. Marker Left Behind. Needle Type: Mammotome Cores: 6 The suspicious 1.6 cm irregular mass 9:00 position, 2 cm from the nipple is identified and targeted for biopsy. We note an adjacent area of chronic nodularity. This area of chronic nodularity is close enough to be included in a future surgical excision specimen. The procedure of ultrasound guided core biopsy was explained to the patient. Benefits, alternatives, and risks were discussed. An informed consent was then obtained. The patient was placed RPO for imaging and for the procedure. The overlying skin was prepped and draped in usual sterile fashion. Lidocaine buffered with bicarbonate was used as anesthetic into the skin and subcutaneous tissue up to area of concern in the left breast. Under ultrasound guidance, a 13-gauge vacuum-assisted mammotome Elite biopsy gun was used to obtain 6 core samples. Following this, a HydroMark coil clip was left in lesion. The patient tolerated the procedure well without any immediate complication. The patient was kept in the radiology department for short stay after the procedure and then discharged home in stable condition. Postprocedure mammogram: The patient was transferred to mammography for physician ordered post procedure mammogram for clip placement verification. Post procedure mammogram demonstrates appropriate placement of clip at the site of the BI-RADS 5 mass. IMPRESSION: Successful, uncomplicated ultrasound guided core biopsy of BI-RADS 5 mass 9:00 left breast, full pathology results to follow. Note the adjacent area of chronic mammographic and ultrasound nodularity. Given its proximity to the suspicious mass, this area would be included in any potential future excision specimen. [facility], , 04/26/2024 1:54 PM. Pathology Results: Result: Benign, Fat necrosis. Pathology and radiology were reviewed. Findings are discordant. LEFT BREAST, 9:00, ULTRASOUND GUIDED NEEDLE CORE BIOPSY: Scar/fibrosis with fat necrosis and hemosiderin laden histiocytes. Negative for malignancy. Overall Assessment: Benign Assessment: MG diagnostic mammo LT wo CAD. - Left: Suspicious, BI-RAD 4. Management: Surgical Consultation of the left breast. While the findings may be concordant, as the mammographic findings are new and show a suspicious appearance, excision is recommended. Electronically signed and approved by: Mango Quintana M.D. Radiologist
== END ==
LOC: RADUSWWP 12:00
PROVIDERS: ATTEND Family Medicine
DX: R92.8 Other abnormal and inconclusive findings on diagnostic imaging of breast (principal); Z80.3 Family history of malignant neoplasm of breast; Z78.0 Asymptomatic menopausal state
CPT/HCPCS: 88305; 77065; 19083; A4648

== ENCOUNTER → 2024-06-24 | Outpatient (CLI) | payer OTHER ==
[2024-06-24 13:08] VITALS: BP 124/66; PULSE 89; RESP 17; TEMP 97.6
--- NOTE | 2024-06-24 13:47 | P.GSCN ---
History of Present Illness Consult date: 06/24/24 Reason for Consult: Discordant core biopsy left breast Requesting physician: Alvarado Sanchez History of present illness: Toshia is a 58-year-old female seen in consultation for Dr. Bowen and me regarding a discordant left breast core biopsy. She underwent a bilateral mammogram in 03 24 24. This revealed a new 2.5 cm irregular mass with spiculated margins in the anterior medial aspect of the left breast. No specific lesions of concern were identified in the right breast. The patient was recommended to undergo an ultrasound of the left breast. This was performed on 04-05-2024. This revealed an irregular shaped soft tissue mass at the 9 o'clock position measuring up to 11 x 9 x 6 mm which was taller than wide with irregular borders. An adjacent lesion at 8:00 was also visualized in one of the 2 view fused 2 cm from the nipple. No abnormal lymph nodes were noted. This was considered BI-RADS 5. The patient underwent an ultrasound-guided core biopsy of the area on 04-26-2024. The biopsy revealed scar/fibrosis with fat necrosis negative for malignancy. This was considered to be discordant and needle localization and excision was recommended. She does not feel any lesions in her breast, no nipple discharge or skin changes. She is not complaining of any infection in her breast. She did have a bruise in the left breast about 2023 when she fell. She has not had any surgery on her breast. Caffeine; 5 16 oz MTN Dew/day nicotine: 1/2 PPD within last month; used to smoke 1 PPD since chocolate: occasional BCP: 5 years hormones: none Family History: mother: breast cancer in 40's Hormonal History: menarche: 13 A1, age at first : 16, breast fed: no menopause: 50 Surgical History: gallbladder left collar bone right wrist back surgery Medical History: high cholesterol HTN Social History: nicotine: as above alcohol: 16 beers/week drugs: none Review of Systems - Constitutional Denies fever, Denies weight loss - EENT Eyes: denies blurred vision Ears: deny: decreased hearing, tinnitus Ears, nose, mouth and throat: Denies dysphagia - Breasts bilateral: as per HPI - Cardiovascular Denies chest pain, Denies shortness of breath - Respiratory Respiratory Comment(s): COPD Reports cough - Gastrointestinal Reports as per HPI - Genitourinary Genitourinary: Denies dysuria, Denies hematuria Menstruation: Reports postmenopausal - Musculoskeletal Musculoskeleta Comment(s): back pain when sits for a long time Reports as per HPI - Integumentary Denies rash, Denies unusual bruising - Neurological Denies headaches, Denies syncope - Psychiatric Reports as per HPI - Endocrine Reports as per HPI - Hematologic/Lymphatic Denies easy bleeding, Denies easy bruising - Allergic/Immunologic Reports as per HPI, Reports seasonal allergies Past Medical History Past Medical History: Hyperlipidemia, Hypertension, Musculoskeletal Disorder Additional Past Medical History / Comment(s): Hx fx Lt Clavicle. Poss seizure 12 years ago, ? episode x1. Lower back pain, radiates into Rt leg, NT in leg. FX RT WRIST 06/29/21 History of Any Multi-Drug Resistant Organisms: None Reported Past Surgical History: Back Surgery, Cholecystectomy, Orthopedic Surgery Additional Past Surgical History / Comment(s): ORIF left clavicle, has plate/screws. pain clinic procedures, BACK SURGERY 08/2020 Past Anesthesia/Blood Transfusion Reactions: No Reported Reaction Past Psychological History: No Psychological Hx Reported Smoking Status: Current every day smoker Past Alcohol Use History: Daily Additional Past Alcohol Use History / Comment(s): down to 1/2 PPD SINCE AGE 17. Beer most days- 4 plus drinks Past Drug Use History: None Reported - Past Family History Mother Family Medical History: Cancer Additional Family Medical History / Comment(s): BREAST Father Family Medical History: Cancer Additional Family Medical History / Comment(s): skin cancer Medications and Allergies Home Medications Medication Instructions Recorded Confirmed Type Atorvastatin [Lipitor] 40 mg PO DAILY 04/08/24 06/24/24 History atenoloL 25 mg PO DAILY 04/08/24 06/24/24 History Allergies Allergy/AdvReac Type Severity Reaction Status Date / Time No Known Allergies Allergy Verified 06/24/24 13:05 Surgical - Exam Vital Signs Temp Pulse Resp BP Pulse Ox 97.6 F 89 17 124/66 100 06/24/24 13:05 06/24/24 13:05 06/24/24 13:05 06/24/24 13:05 06/24/24 13:05 - General no distress - Eyes normal ocular movement - Neck trachea midline - Cardiovascular Rhythm: regular Heart Sounds: normal: S1, S2 - Integumentary no rashes noted/ heavy smoker for many years - Neurologic no disoriented, no combative - Psychiatric oriented to time, oriented to person, oriented to place, speech is normal, memory intact Breast Exam: BRA: 36B inspection: bilateral grade 2 ptosis Palpation: Right breast: Multi positional exam no dominant masses or nodules of concern Right axilla: No adenopathy of concern Left breast: Multi positional exam nodularity in the periareolar region at 9:00, approximately 2 cm in size Left axilla: No adenopathy of concern Results Mammogram/ultrasound of the left breast and postbiopsy mammogram reviewed and personally interpreted, lesion of concern 9 in the 8 o'clock position of the left breast Assessment and Plan Assessment: Impression: Discordant core biopsy left breast lesion Nicotine dependence Hypertension High cholesterol Plan: Needle localization excisional biopsy lesion left breast Patient encouraged to stop smoking/she has decreased her amount Medical clearance from Dr. Cruz CC: Dr. Cruz
--- NOTE | 2024-06-24 16:36 | P.GSCN ---
History of Present Illness Consult date: 06/24/24 Reason for Consult: Discordant core biopsy left breast Requesting physician: Alvarado Lopez History of present illness: Is a 58-year-old female seen in consultation for Dr. Bowen and me regarding a discordant left core breast biopsy. She underwent a bilateral mammogram on 03 24 24. This revealed a new 2.5 cm irregular mass with spiculated margins in the anterior medial aspect of the left breast. No sp ecific lesions of concern were identified in the right breast. The patient was recommended to undergo an ultrasound of the left breast. This was performed on 04-05-2024. This revealed an irregular shaped soft tissue mass at the 9 o'clock position measuring up to 11 x 9 x 6 mm which was taller than wide with irregular borders. An adjacent lesion at 8:00 was also visualized 2 cm from the nipple. No abnormal lymph nodes were noted. This was considered BI-RADS 5. The patient underwent an ultrasound-guided core biopsy of the area on 04-26-2024. The biopsy revealed scar/fibrosis with fat necrosis negative for malignancy. This was considered to be discordant and needle localization and excision was recommended. She does not feel any lesions in her breast, she has no nipple discharge or skin changes. She is not complaining of any infection in her breast. She did have a bruise in the left breast approximately February 2024 at which time she fell. She has not had any surgery on her breast. Caffeine: 516 ounce Mountain Dew's per day Nicotine: 1/2 pack/day in the last month used to smoke 1 pack/day for 17 years Chocolate: Occasional control pills: 5 years Hormones: Negative Family history: Mother: Breast cancer in her 40s Hormonal history: Menarche: 13 A1, age at first 16, breast-fed: Negative Menopause: 50 Surgical history: Cholecystectomy Left collarbone surgery Right wrist surgery Back surgery Medical history: High cholesterol Hypertension Social history: Nicotine: As above Alcohol: 16 beers per week Drugs: Negative Review of Systems - Constitutional Denies fever, Denies weight loss - EENT Eyes: denies blurred vision Ears: deny: decreased hearing, tinnitus Ears, nose, mouth and throat: Denies dysphagia - Breasts bilateral: as per HPI - Cardiovascular Denies chest pain - Respiratory Respiratory Comment(s): COPD - Gastrointestinal Reports as per HPI - Genitourinary Genitourinary: Denies dysuria, Denies hematuria Menstruation: Reports postmenopausal - Musculoskeletal Musculoskeleta Comment(s): back pain when sits for a long time - Integumentary Denies rash, Denies unusual bruising - Neurological Denies headaches, Denies syncope - Psychiatric Reports as per HPI - Endocrine Reports as per HPI - Allergic/Immunologic Reports as per HPI, Reports seasonal allergies Past Medical History Past Medical History: Hyperlipidemia, Hypertension, Musculoskeletal Disorder Additional Past Medical History / Comment(s): Hx fx Lt Clavicle. Poss seizure 12 years ago, ? episode x1. Lower back pain, radiates into Rt leg, NT in leg. FX RT WRIST 06/29/21 History of Any Multi-Drug Resistant Organisms: None Reported Past Surgical History: Back Surgery, Cholecystectomy, Orthopedic Surgery Additional Past Surgical History / Comment(s): ORIF left clavicle, has plate/screws. pain clinic procedures, BACK SURGERY 08/2020 Past Anesthesia/Blood Transfusion Reactions: No Reported Reaction Past Psychological History: No Psychological Hx Reported Smoking Status: Current every day smoker Past Alcohol Use History: Daily Additional Past Alcohol Use History / Comment(s): down to 1/2 PPD SINCE AGE 17. Beer most days- 4 plus drinks Past Drug Use History: None Reported - Past Family History Mother Family Medical History: Cancer Additional Family Medical History / Comment(s): BREAST Father Family Medical History: Cancer Additional Family Medical History / Comment(s): skin cancer Medications and Allergies Home Medications Medication Instructions Recorded Confirmed Type Atorvastatin [Lipitor] 40 mg PO DAILY 04/08/24 06/24/24 History atenoloL 25 mg PO DAILY 04/08/24 06/24/24 History Allergies Allergy/AdvReac Type Severity Reaction Status Date / Time No Known Allergies Allergy Verified 06/24/24 13:05 Surgical - Exam Vital Signs Temp Pulse Resp BP Pulse Ox 97.6 F 89 17 124/66 100 06/24/24 13:05 06/24/24 13:05 06/24/24 13:05 06/24/24 13:05 06/24/24 13:05 - General no distress - Eyes normal ocular movement - Neck trachea midline - Respiratory normal respiratory effort, clear to auscultation - Cardiovascular Rhythm: regular Heart Sounds: normal: S1, S2 - Abdomen Abdomen: soft, non tender, no guarding, no rigid, no rebound - Integumentary heavy smoker for many years no rash, no abnormal pigmentation - Neurologic no disoriented, no combative - Psychiatric oriented to time, oriented to person, oriented to place, speech is normal, memory intact Breast Exam: BRA: 36B Inspection: Bilateral grade 2 ptosis Palpation: Right breast: Multi positional exam no dominant masses or nodules of concern Right axilla: No adenopathy of concern Left breast: Multi positional exam nodularity in the periareolar region at 9:00 approximately 2 cm in size Left axilla: No adenopathy of concern Results Mammogram/ultrasound of the left breast and postbiopsy mammogram reviewed and personally interpreted, lesion of concern 9:00, in the 8 o'clock position of the left breast there is also questionable lesion Assessment and Plan Assessment: Impression: Discordant core biopsy left breast lesion Nicotine dependence Hypertension High cholesterol Plan: Needle localization excisional biopsy lesion left breast 8 and 9:00 Patient encouraged to stop smoking/she has decreased her amount Medical clearance from Dr. Lopez CC: Dr. Lopez
== END ==
LOC: WWCWWP 12:51
PROVIDERS: ATTEND Surgery
DX: N63.20 Unspecified lump in the left breast, unspecified quadrant (principal); I10 Essential (primary) hypertension; E78.00 Pure hypercholesterolemia, unspecified; F17.210 Nicotine dependence, cigarettes, uncomplicated

== ENCOUNTER → 2024-07-22 | Outpatient (CLI) | payer OTHER ==
[2024-07-22 09:38] VITALS: BP 102/69; PULSE 99; RESP 16; TEMP 97.9
--- NOTE | 2024-07-22 09:49 | P.PN ---
Subjective Progress Note Date: 07/22/24 Principal diagnosis: abnormal left breast mammogram and ultrasound 07-22-24 Reason for Consult: Discordant core biopsy left breast Requesting physician: Alvarado Sanchez History of present illness: Is a 58-year-old female seen in consultation for Dr. Sanchez regarding a discordant left core breast biopsy. She underwent a bilateral mammogram on 03 24 24. This revealed a new 2.5 cm irregular mass with spiculated margins in the anterior medial aspect of the left breast. No specific lesions of concern were identified in the right breast. The patient was recommended to undergo an ultrasound of the left breast. This was performed on 04-05-2024. This revealed an irregular shaped soft tissue mass at the 9 o'clock position measuring up to 11 x 9 x 6 mm which was taller than wide with irregular borders. An adjacent lesion at 8:00 was also visualized 2 cm from the nipple. No abnormal lymph nodes were noted. This was considered BI-RADS 5. The patient underwent an ultrasound-guided core biopsy of the area on 04-26-2024. The biopsy revealed scar/fibrosis with fat necrosis negative for malignancy. This was considered to be discordant and needle localization and excision was recommended. She does not feel any lesions in her breast, she has no nipple discharge or skin changes. She is not complaining of any infection in her breast. She did have a bruise in the left breast approximately February 2024 at which time she fell. She has not had any surgery on her breast. Mammogram and ultrasound were personally reviewed with Dr. Alexander from radiology. The recommendation will be for a ultrasound localization of the 2 areas of concern at 8 and 9:00 in the left breast. Caffeine: 516 ounce Mountain Dew's per day Nicotine: 1/2 pack/day in the last month used to smoke 1 pack/day for 17 years Chocolate: Occasional control pills: 5 years Hormones: Negative Family history: Mother: Breast cancer in her 40s Hormonal history: Menarche: 13 A1, age at first 16, breast-fed: Negative Menopause: 50 Surgical history: Cholecystectomy Left collarbone surgery Right wrist surgery Back surgery Medical history: High cholesterol Hypertension Social history: Nicotine: As above Alcohol: 16 beers per week Drugs: Negative Review of Systems - Constitutional Denies fever, Denies weight loss - EENT Eyes: denies blurred vision Ears: deny: decreased hearing, tinnitus Ears, nose, mouth and throat: Denies dysphagia - Breasts bilateral: as per HPI - Cardiovascular Denies chest pain - Respiratory Respiratory Comment(s): COPD - Gastrointestinal Reports as per HPI - Genitourinary Genitourinary: Denies dysuria, Denies hematuria Menstruation: Reports postmenopausal - Musculoskeletal Musculoskeleta Comment(s): back pain when sits for a long time - Integumentary Denies rash, Denies unusual bruising - Neurological Denies headaches, Denies syncope - Psychiatric Reports as per HPI - Endocrine Reports as per HPI - Allergic/Immunologic Reports as per HPI, Reports seasonal allergies Past Medical History Past Medical History: Hyperlipidemia, Hypertension, Musculoskeletal Disorder Additional Past Medical History / Comment(s): Hx fx Lt Clavicle. Poss seizure 12 years ago, ? episode x1. Lower back pain, radiates into Rt leg, NT in leg. FX RT WRIST 06/29/21 History of Any Multi-Drug Resistant Organisms: None Reported Past Surgical History: Back Surgery, Cholecystectomy, Orthopedic Surgery Additional Past Surgical History / Comment(s): ORIF left clavicle, has plate/screws. pain clinic procedures, BACK SURGERY 08/2020 Past Anesthesia/Blood Transfusion Reactions: No Reported Reaction Past Psychological History: No Psychological Hx Reported Smoking Status: Current every day smoker Past Alcohol Use History: Daily Additional Past Alcohol Use History / Comment(s): down to 1/2 PPD SINCE AGE 17. Beer most days- 4 plus drinks Past Drug Use History: None Reported - Past Family History Mother Family Medical History: Cancer Additional Family Medical History / Comment(s): BREAST Father Family Medical History: Cancer Additional Family Medical History / Comment(s): skin cancer Medications and Allergies Home Medications Medication Instructions Recorded Confirmed Type Atorvastatin [Lipitor] 40 mg PO DAILY 04/08/24 06/24/24 History atenoloL 25 mg PO DAILY 04/08/24 06/24/24 History Allergies Allergy/AdvReac Type Severity Reaction Status Date / Time No Known Allergies Allergy Verified 06/24/24 13:05 Objective - Vital Signs Vital signs: Vital Signs Temp 97.9 F 07/22/24 09:35 Pulse 99 07/22/24 09:35 Resp 16 07/22/24 09:35 BP 102/69 07/22/24 09:35 Pulse Ox 100 07/22/24 09:35 FiO2 Intake & Output 07/21/24 07/22/24 07/22/24 18:59 06:59 18:59 Weight 51.256 kg - Constitutional General appearance: Present: cooperative - EENT Eyes: Present: EOMI ENT: Present: hearing grossly normal - Neck Neck: Present: normal ROM - Respiratory Respiratory: bilateral: CTA - Cardiovascular Rhythm: regular Heart sounds: normal: S1, S2 - Integumentary Integumentary: Present: normal turgor - Musculoskeletal Musculoskeletal: Present: gait normal - Psychiatric Psychiatric: Present: A&O x's 3, appropriate affect, intact judgment & insight - Additional findings Additional findings: Breast Exam: BRA: 36B Inspection: Bilateral grade 2 ptosis Palpation: Right breast: Multi positional exam no dominant masses or nodules of concern Right axilla: No adenopathy of concern Left breast: Multi positional exam nodularity in the periareolar region at 9:00 approximately 2 cm in size Left axilla: No adenopathy of concern Assessment and Plan Assessment: Impression: Discordant core biopsy left breast lesion Nicotine dependence Hypertension High cholesterol Plan: Needle localization excisional biopsy lesion left breast 8 and 9:00 to be done via ultrasound localiazation, reviewed with DR. Alexander from radiology Patient encouraged to stop smoking/she has decreased her amount Medical clearance from Dr. Sanchez CC: Dr. Sanchez
== END ==
LOC: WWCWWP 09:27
PROVIDERS: ATTEND Surgery
DX: N64.9 Disorder of breast, unspecified (principal); I10 Essential (primary) hypertension; E78.00 Pure hypercholesterolemia, unspecified; F17.200 Nicotine dependence, unspecified, uncomplicated

== ENCOUNTER → 2024-08-27 | Outpatient (CLI) | payer OTHER ==
--- NOTE | 2024-08-27 16:52 | XR ---
EXAMINATION TYPE: XR foot complete RT DATE OF EXAM: 08/27/2024 4:26 PM COMPARISON: None. CLINICAL INDICATION: Female, 58 years old with history of [id number] RT FOOT PAIN, pain TECHNIQUE: XR foot complete RT XX views were obtained. FINDINGS: There is no acute fracture/dislocation evident. The joint spaces appear within normal limits. Mild d orsal soft tissue swelling. IMPRESSION: No acute fracture or dislocation. [facility], , 08/27/2024 4:49 PM
== END | disposition home or self-care (01) ==
LOC: RADXRYALE 16:14
PROVIDERS: ATTEND Physician Assistant Medical
DX: M79.671 Pain in right foot (principal)